=== PATIENT | male | born 1955 | race Caucasian/White ===

== ENCOUNTER 2023-01-14 09:04 | Outpatient (AMB) | payer BC, SELFPAY ==
--- NOTE | 2023-01-14 09:12 | AM.OFFWIN_ITS ---
Intake Vital Signs 01/14/23 09:13 Height 6 ft 1 in Weight 107.048 kg BMI 31.1 BP 128/70 Blood Pressure Location Lt brachial Position Sitting Pulse 80 Pulse Source Pulse Oximeter Temp 98.1 F Temp Source Oral Pulse Oximetry (%) 96 Oxygen Delivery Method Room Air Intake Visit Reasons: EP, cough (masked) Intake Note: Pt is here today c/o doesn't have a productive cough since yesterday Allergies lisinopril [LISINOPRIL] Adverse Reaction (Mild, Unverified 01/14/23 09:17) DRY COUGH atorvastatin [From LIPITOR] Adverse Reaction (Unknown, Unverified 01/14/23 09:17) MUSCLE WEAKNESS Do you need a note to return to daycare/school/sports/work: Yes HPI HPI Comments History of Present Illness Details 09 This is 66 year old male history of hyperlipidemia hypertension presenting to the clinic for evaluation of fatigue, malaise, myalgias, cough, sore throat, rib pain from coughing for the past 2 days worsening. Patient reports the main reason he came in today was because he feels like the muscles in his ribs are hurting long when he coughs, he reports a sore sensation only with cough. No p ain with deep breathing. Patient denies sick contacts. Patient denies fevers, chills, chest pain, shortness of breath, nausea, vomiting, abdominal pain, headache, vision changes, dizziness and weakness. Patient is already COVID test at home, test was negative. Physical exam significant for Breath sounds w/ mild- moderate expiratory wheezing throughout worse to left side .? Concerns for viral illness and possible asthma. Unlikely pulmonary embolism, pneumonia, ACS. Unlikely peritonsillar abscess, retropharyngeal abscess, epiglottitis. Plan at this time will give Lidoderm patches for muscular pain, prednisone for wheezing, albuterol inhaler for wheezing and benzos date Perles for cough. Educated patient on diagnosis and treatment plan, answered all question, patient verbalizes understanding. At this time patient will be discharged home, advised to return with new or worsening symptoms. Educated on worrisome signs and symptoms and when to return. At this time I feel comfortable discharge home. Review of Systems Const Details: Constitutional : No Weight loss, No Fever, No Chills, + Fatigue, + Malaise ENT/Mouth : + sore throat, No Rhinorrhea Eyes: No Eye Pain, No Swelling, No Redness Cardiovascular : No Chest Pain, No SOB, No Dyspnea on Exertion, No Orthopnea, No Edema, No Palpitations Respiratory : + Cough, No Sputum, No Wheezing Gastrointestinal : No Nausea, No Vomiting, No Diarrhea, No Constipation, No abdominal Pain, No Hematochezia, No Melena Genitourinary : No Dysuria, No Urinary Frequency, No Hematuria, Musculoskeletal : No joint pain, No Myalgias, No Joint Swelling, + rib pain Skin : No Skin Lesions, No rash Neuro : No Weakness, No Numbness, No Dizziness, No Headache Psych : No Anxiety/Panic, No Depression All other systems reviewed and are negative All systems reviewed & are unremarkable except as noted in HPI and below Physical Exam Vital Signs: Last Vital Signs Temp 98.1 F 01/14/23 09:13 Pulse 80 01/14/23 09:13 BP 128/70 01/14/23 09:13 Pulse Ox 96 01/14/23 09:13 Oxygen Delivery Method Room Air 01/14/23 09:13 BMI result Body Mass Index 31.1 vss Appearance: Alert.? Oriented X3.? No acute distress.? Head: Normocephalic, atraumatic, no step-offs or deformities Eyes: Pupils equal, round and reactive to light.? ENT: Pharynx normal.? Neck: Normal inspection.? Neck supple.? CVS: Normal heart rate and rhythm.? Pulses normal.? Respiratory: No respiratory distress.? Breath sounds w/ mild- moderate expiratory wheezing throughout worse to left side .? Abdomen: Soft and nontender.? Skin: Skin warm and dry.? Normal skin color.? Normal skin turgor.? Extremities: No lower extremity edema.? No calf ttp. 5/5 strength to bilateral upper and lower extremities Neuro: Oriented X 3.? No motor deficit.? No sensory deficit. CN 2-12 intact Assessment & Plan Assessment & Plan (1) Viral illness: Code(s): B34.9 - Viral infection, unspecified Plan Take your medications as prescribed. If you were prescribed antibiotics today, it is important that you take your medication to their entirety, do not skip any doses, do not finish them early. Follow-up with your primary care provider this week. Return to the emergency department with new or worsening symptoms. Such as fevers, chills, chest pain, shortness of breath, nausea, vomiting, dizziness, headache, vision changes, lethargy In case of emergency call 911 Orders: Orders BinaxZACKARYW Covid-19 Ag Today B34.9 - Viral infection, unspecified Medications: New albuterol sulfate 90 mcg/actuation 2 puffs inhalation Q6H PRN 6.7 grams 0RF shortness of breath or wheezing lidocaine 4% (AsperFlex (lidocaine)) 1 patch topical DAILY PRN 15 ea 0RF pain prednisone 40 mg (2 x 20 mg) PO DAILY 10 tabs 0RF 5 days benzonatate 100 mg PO BID PRN 14 caps 0RF cough Coding Level of Care Code Est Pt Level 3 (53580) Diagnoses Viral illness B34.9
[2023-01-14 09:13] VITALS: BP 128/70; PULSE 80; TEMP 36.7; O2SAT 96; BMI 31.1
== END 2023-01-14 14:55 | disposition home or self-care (01) ==
PROVIDERS: Visit Provider Physician Assistant
DX: B34.9 Viral infection, unspecified (principal)
CPT/HCPCS: 99213

== ENCOUNTER 2024-05-13 13:55 | Outpatient (REF) | payer BC, SELFPAY ==
--- OUTSIDE RECORDS SUMMARY | 2024-05-13 14:25 | XMS_ITS | Clinical Summary ---
Author Organization [facility] Address [address] [place] [address] Care Team Providers Care Special Library Librarian Name Role Phone Perez Carrasquillo MD Primary Care Provider [phone] Allergies Active Allergy Reactions Criticality Noted Date [...] topic Zoster (Zostavax) Discontinued Insurance * Guarantor: [id number] ICE Account Type Relation to Patient Date of Phone Billing Address [employer] [address] [place] [id number] [employer] Care Teams Special Library Librarian Relationship Specialty Start Date End Date Perez Carrasquillo MD [address] [address] PCP - General Family Medicine 11/06/19
[2024-05-13 16:38] LABS: Influenza A PCR NEGATIVE (Negative); Influenza B PCR NEGATIVE (Negative); Resp Syncy Virus RNA Qual PCR NEGATIVE (Negative); SARS COV2 PCR INHOUSE NEGATIVE (Negative)
== END 2024-05-13 13:56 | disposition home or self-care (01) ==
LOC: HO.LAB 13:55
PROVIDERS: Visit Provider Nurse Practitioner Family
DX: J06.9 Acute upper respiratory infection, unspecified (principal); R05.1 Acute cough
CPT/HCPCS: 0241U

== ENCOUNTER 2024-05-13 13:55 | Outpatient (AMB) | payer BC, SELFPAY ==
--- OUTSIDE RECORDS SUMMARY | 2024-05-13 13:57 | XMS_ITS | Clinical Summary ---
Author Organization [facility] Address [address] [place] [address] Care Team Providers Care Auto Fleet Manager Name Role Phone Perez Carrasquillo MD Primary Care Provider [phone] Allergies Active Allergy Reactions Criticality Noted Date Comments Lipitor Other 11/06/2019 muscle weakness Lisinopril Cough 11/06/2019 Medications Ezetimibe (ZETIA) 10 MG tablet Take 10 mg by mouth 1 (one) time each day 10/21/2019 Active amLODIPine Besylate (NORVASC) 5 MG tablet TK 1 T PO QD 09/14/2019 Active hydrALAZINE HCl (APRESOLINE) 10 MG tablet TK 1 T PO BID 09/14/2019 Active Immunizations Name Administration Dates Next Due Tdap 11/06/2019 Social History Tobacco Use Types Packs/Day Years Used Date Smoking Tobacco: Never Assessed Sex and Gender Information Value Date Recorded Sex Assigned at Not on file Legal Sex Male 1:21 PM EDT Gender Identity Not on file Sexual Orientation Not on file Last Filed Vital Signs Vital Sign Reading Time Taken Comments Blood Pressure 138/87 11/06/2019 1:31 PM EDT Pulse 82 11/06/2019 1:31 PM EDT Temperature 36.1 ??C (97 ??F) 11/06/2019 1:31 PM EDT Respiratory Rate - - Oxygen Saturation 97% 11/06/2019 1:31 PM EDT Inhaled Oxygen Concentration - - Weight - - Height - - Body Mass Index - - Plan of Treatment Health Maintenance Due Date Last Done Comments Hepatitis C Screening 1955 Pneumococcal 50+ years (1 of 1 - PCV) 10/10/2007 Zoster (Shingrix) (1 of 2) 10/10/2007 COVID-19 Vaccine ( - 2023-2 5 season) 2023 Influenza (#1) 2023 DTaP/Tdap/Td (2 - Td or Tdap) 11/05/2029 11/06/2019 RSV (1 - 1-dose 75+ series) 2032 Abdominal Aorta Imaging Discontinued HPV Vaccine Aged Out No longer eligi ble based on patient's age to complete this topic Hep A Aged Out No longer eligi ble based on patient's age to complete this topic Hep B Aged Out No longer eligi ble based on patient's age to complete this topic Hib Aged Out No longer eligi ble based on patient's age to complete this topic Meningococcal ACWY Aged Out No longer eligible based on patient's age to complete this topic Zoster (Zostavax) Discontinued Insurance * Guarantor: [id number] ICE Account Type Relation to Patient Date of Phone Billing Address [employer] [address] [place] [id number] [employer] Care Teams Auto Fleet Manager Relationship Specialty Start Date End Date Perez Carrasquillo MD [address] [address] PCP - General Family Medicine 11/06/19
--- NOTE | 2024-05-13 13:59 | AM.OFFWIN_ITS ---
Intake Vital Signs 05/13/24 14:03 Height 6 ft 1 in Weight 240 lb BMI 31.7 BP 156/100 H Blood Pressure Location Lt brachial Position Sitting Pulse 77 Pulse Source Pulse Oximeter Temp 97.9 F Temp Source Oral Pulse Oximetry (%) 98 Oxygen Delivery Method Room Air Intake Visit Reasons: EP Cough, discomf in chest, headache, HBP (150/90) Intake Note: Patient here for cough, chest pain,headache,congestion that started about 3-4 days ago. Patient Tobacco Use Status: Never used Tobacco Allergies lisinopril [LISINOPRIL] Adverse Reaction (Mild, Unverified 05/13/24 14:04) DRY COUGH atorvastatin [From LIPITOR] Adverse Reaction (Unknown, Unverified 05/13/24 14:04) MUSCLE WEAKNESS Do you need a note to return to daycare/school/sports/work: Yes HPI HPI Comments History of Present Illness Details 68 y/o male patient who presents to the walk in clinic with c/o URI symptoms x 3-4 days now. Reports cough, chest tightness and pain from coughing, headaches and Elevated BP. FOR[facility]LY [facility], [facility] Medical History (Updated 05/13/24 @ 14:20 by Bouchra Rodgers NP) Cough Acute respiratory disease Social History Patient Tobacco Use Status: Never used Tobacco Review of Systems Const All systems reviewed & are unremarkable except as noted in HPI and below Physical Exam Vital Signs: Last Vital Signs Temp 97.9 F 05/13/24 14:03 Pulse 77 05/13/24 14:03 BP 156/100 H 05/13/24 14:03 Pulse Ox 98 05/13/24 14:03 Oxygen Delivery Method Room Air 05/13/24 14:03 BMI result Body Mass Index 31.7 Const General: cooperative and no acute distress Orientation/consciousness: patient oriented x3 HEENT Head: Yes normocephalic Ears: external ears normal and TM abnormal obstructed by cerumen bilateral General nose exam: Normal external nose present and Nasal discharge present Face and sinus: Yes sinuses nontender Mouth: moist mucous membranes Throat: Yes uvula midline Resp Effort & Inspection: normal respiratory effort, able to speak in complete sentences, no audible wheezes and Actively coughing Auscultation: clear to auscultation bilaterally, no crackles, no rales, no rhonchi and no wheezes Cardio Heart sounds: S1 normal heart sound present and S2 normal heart sound present Neuro General: patient oriented x3 Assessment & Plan Assessment & Plan (1) Acute respiratory disease: Code(s): J06.9 - Acute upper respiratory infection, unspecified Plan: Ordered SARs Rest and hydrate well with warm fluids. (2) Cough: Code(s): R05.9 - Cough, unspecified Qualifiers: Cough type: acute Qualified Code(s): R05.1 - Acute cough Plan: Ordered SARs Rest and hydrate well with warm fluids. Orders: Orders SARS-CoV2/FLU/RSV Today J06.9 - Acute upper respiratory infection, unspecified Medications: New benzonatate 200 mg (2 x 100 mg) PO BID 60 caps 0RF R05.1 - Acute cough Coding Level of Care Code Est Pt Level 4 (85937) Diagnoses Acute respiratory disease J06.9 Acute cough R05.1 Cough type: acute Time Spent (min) 20
[2024-05-13 14:03] VITALS: BP 156/100; PULSE 77; TEMP 36.6; O2SAT 98; BMI 31.7
== END 2024-05-13 14:20 | disposition home or self-care (01) ==
PROVIDERS: Visit Provider Nurse Practitioner Family
DX: J06.9 Acute upper respiratory infection, unspecified (principal); R05.1 Acute cough

== ENCOUNTER 2024-05-15 14:50 | Outpatient (AMB) | payer BC, SELFPAY ==
--- OUTSIDE RECORDS SUMMARY | 2024-05-15 14:52 | XMS_ITS | Clinical Summary ---
Author Organization [facility] Address [address] [place] [address] Care Team Providers Care Criminalist Name Role Phone Perez Carrasquillo MD Primary Care Provider [phone] Allergies Active Allergy Reactions Criticality Noted Date [...] topic Zoster (Zostavax) Discontinued Insurance * Guarantor: [id number] ICE Account Type Relation to Patient Date of Phone Billing Address [employer] [address] [place] [id number] [employer] Care Teams Criminalist Relationship Specialty Start Date End Date Perez Carrasquillo MD [address] [address] PCP - General Family Medicine 11/06/19
[2024-05-15 15:29] VITALS: BP 142/82; PULSE 86; RESP 18; TEMP 37.1; O2SAT 98; BMI 31.7
--- NOTE | 2024-05-15 15:29 | AM.OFFWIN_ITS ---
Intake Vital Signs 05/15/24 15:29 Height 6 ft 1 in Weight 240 lb BMI 31.7 BP 142/82 H Blood Pressure Location Rt brachial Position Sitting Respiration 18 Pulse 86 Pulse Source Pulse Oximeter Temp 98.7 F Temp Source Oral Pulse Oximetry (%) 98 Oxygen Delivery Method Room Air Intake Visit Reasons: EP-cough, lwr back pain Intake Note: Pt is here today for a walk in visit. Pt was seen on Monday was given Benzonatate but that is not helping for the cough. Pt states that now he has pain on the R side of the abdomen from coughing. Patient Tobacco Use Status: Never used Tobacco Allergies lisinopril [LISINOPRIL] Adverse Reaction (Mild, Unverified 05/15/24 15:36) DRY COUGH atorvastatin [From LIPITOR] Adverse Reaction (Unknown, Unverified 05/15/24 15:36) MUSCLE WEAKNESS HPI HPI Comments History of Present Illness Details History - The patient is a 68-year-old male pres enting with a persistent nonproductive cough. - Symptoms began 6 days ago, with a prev ious diagnosis of an upper respiratory infection. - Initial management included rest, hydr ation, Tessalon Perles, and advice on the use of Trisha D. - The patient notes that attempts to cou gh are nonproductive, leading to muscle strain and headaches but denies fever, shortness of breath, or wheezing. - Past medical history includes treatmen t for hypertension, with current medications being amlodipine and hydrochlorothiazide. - Ibuprofen is administered for headache and throat inflammation relief. Physical Exam General: Cooperative, healthy appearing, comfortable and no acute distress Orientation/consciousness: Patient oriented x3 Limitations: No limitations Head: Normal to inspection Ears: Hearing grossly normal bilaterally, external ears normal and TM's bilaterally with cerumen Nose: Normal external nose present, Normal nares present and No nasal discharge present Face and sinus: Normal facial exam and Yes sinuses nontender Mouth: Normal oral and palatal mucosa present and moist mucous membranes Throat: Yes tonsils normal, Yes uvula midline. Posterior oropharynx erythema Eyes: Appearance normal, both eyes and all related structures Neck: Normal visual inspection Respiratory: slight insp/exp wheezes and vesicular sounds. Normal respiratory effort, able to speak in complete sentences, Actively coughing, no respiratory distress, not tachypneic, no tripod positioning and no use of accessory muscles, Cardiovascular: Regular rate and rhythm. Normal S1 and S2 Skin: No rashes or lesions noted Neuro: Patient oriented x3 Extremities: Normal to inspection and Yes no clubbing, cyanosis or edema [facility] Medical History (Updated 05/13/24 @ 14:20 by Bouchra Rodgers NP) Cough Acute respiratory disease Social History Patient Tobacco Use Status: Never used Tobacco Review of Systems Const All systems reviewed & are unremarkable except as noted in HPI and below Physical Exam Vital Signs: Last Vital Signs Temp 98.7 F 05/15/24 15:29 Pulse 86 05/15/24 15:29 Resp 18 05/15/24 15:29 BP 142/82 H 05/15/24 15:29 Pulse Ox 98 05/15/24 15:29 Oxygen Delivery Method Room Air 05/15/24 15:29 BMI result Body Mass Index 31.7 Assessment & Plan Assessment & Plan (1) Cough: Code(s): R05.9 - Cough, unspecified Qualifiers: Cough type: acute Qualified Code(s): R05.1 - Acute cough Plan: VSS, pt well appearing, lung sounds with ins/exp wheezes and vesicular sounds. The patient presents with persistent nonproductive cough subsequent to an upper respiratory infection. Considering differential diagnoses, a chest x-ray is required to exclude the development of pneumonia due to persistent symptoms. To address suspected lung inflammation, a SoluMedrol Dosepak is provided, involving a structured dosage taper, and Trisha D should be maintained. Tessalon Perles is prescribed nightly to reduce nocturnal coughing. Increased fluid intake is advised to improve mucus clearance. The patient is to complete a chest x-ray p romptly; if findings suggest pneumonia, an antibiotic will be administered. Follow-up arrangements will be made to evaluate treatment efficacy and determine further steps. Patient was informed and verbally consented to the use of an ambient scribe for clinic note documentation during this visit Orders: Orders XR chest 2V Today R05.9 - Cough, unspecified Medications: New methylprednisolone PO PER PKG DIR for 6 days 21 ea 0RF Discontinued albuterol sulfate 90 mcg/actuation Discontinued Reason: Patient no longer taking 2 puffs inhalation Q6H PRN 6.7 grams 0RF shortness of breath or wheezing Coding Level of Care Code New Pt Level 4 (10098) Diagnoses Acute cough R05.1 Cough type: acute
== END 2024-05-15 15:59 | disposition home or self-care (01) ==
PROVIDERS: Visit Provider Physician Assistant
DX: R05.1 Acute cough (principal)

== ENCOUNTER 2024-05-15 15:58 | Outpatient (REF) | payer BC, SELFPAY ==
--- NOTE | ~2024-05-15 | XR_ITS ---
EXAMINATION: XR CHEST CLINICAL INFORMATION: R05.9 - Cough, unspecified COMPARISON: 03/24/2018. TECHNIQUE: 2 views of the chest were obtained. FINDINGS: The cardiac, hilar, and mediastinal contours are normal. The lungs are clear bilaterally. There is no pneumothorax or pleural effusion. There is no focal osseous or soft tissue abnormality. XR/XR chest 2V IMPRESSION: No active pulmonary disease. Electronically signed by: Haim Bhakta MD 05/15/2024 04:22 PM [facility]
--- OUTSIDE RECORDS SUMMARY | 2024-05-15 16:00 | XMS_ITS | Clinical Summary ---
Author Organization [facility] Address [address] [place] [address] Care Team Providers Care Bed Rubber Name Role Phone Perez Carrasquillo MD Primary Care Provider [phone] Allergies Active Allergy Reactions Criticality Noted Date [...] topic Zoster (Zostavax) Discontinued Insurance * Guarantor: [id number] ICE Account Type Relation to Patient Date of Phone Billing Address [employer] [address] [place] [id number] [employer] Care Teams Bed Rubber Relationship Specialty Start Date End Date Perez Carrasquillo MD [address] [address] PCP - General Family Medicine 11/06/19
== END 2024-05-15 15:59 | disposition home or self-care (01) ==
LOC: HO.HMGCX 15:58
PROVIDERS: Visit Provider Physician Assistant
DX: R05.1 Acute cough (principal)
CPT/HCPCS: 71046

== ENCOUNTER → 2024-05-15 16:13 | Outpatient (BNV) | payer BC, SELFPAY | PROVIDERS: Visit Provider Radiology Diagnostic Radiology | DX: R05.9 Cough, unspecified (principal) | CPT/HCPCS: 71046 ==

== ENCOUNTER 2024-08-09 10:13 | Outpatient (REF) | payer OTHER, SELFPAY ==
--- OUTSIDE RECORDS SUMMARY | 2024-08-09 11:34 | XMS_ITS | Clinical Summary ---
Author Organization [facility] Address [address] [place] [address] Care Team Providers Care Welcome Desk Agent Name Role Phone Perez Carrasquillo MD Primary Care Provider [phone] Allergies Active Allergy Reactions Criticality Noted Date [...] topic Zoster (Zostavax) Discontinued Insurance * Guarantor: [id number] ICE Account Type Relation to Patient Date of Phone Billing Address Worker's Comp [address] [place] [id number] WORK[employer] COMPENS[employer] Care Teams Welcome Desk Agent Relationship Specialty Start Date End Date Perez Carrasquillo MD [address] [address] PCP - General Family Medicine 11/06/19
[2024-08-09 13:13] LABS: MANUAL DIFF FLAG NO
[2024-08-09 13:21] LABS: Basophils Absolute Auto 0.1 X10*3/uL (0.0-0.2); Basophils Percent Auto 0.9 % (0-2); Eosinophils Percent Auto 0.7 % (0-4); Hematocrit 43.1 % (42.0-52.0); Hemoglobin 14.8 g/dl (14.0-18.0); Imm Gran Abs Auto 0.02 X10*3/uL (0.00-0.03); Imm Gran Pct Auto 0.4 % (0.0-0.4); Lymphocytes Absolute Auto 1.6 X10*3/uL (1.2-4.9); Lymphocytes Percent Auto 27.8 % (20-40); Mean Corpuscular HGB Conc 34.3 g/dl (31.0-36.0); Mean Corpuscular Hemoglobin 31.4 pg (27.0-33.0); Mean Corpuscular Volume 91.5 fL (80.0-98.0); Mean Platelet Volume 9.7 fL (9.4-12.4); Monocytes Absolute Auto 0.5 X10*3/uL (0.1-1.2); Monocytes Percent Auto 8.4 % (2-11); Neutrophils Absolute Auto 3.5 x10*3/uL (2.0-8.3); Neutrophils Percent Auto 61.8 % (45-73); Platelet Count 281 X10*3/uL (160-400); Red Blood Count 4.71 X10*6/uL (4.60-5.80); Red Cell Distribution Width 13.9 % (11.0-16.0); White Blood Count 5.6 X10*3/uL (4.8-10.8)
[2024-08-09 13:26] LABS: Estimated Average Glucose 111 mg/dL; Hemoglobin A1C 142.6265 umol/L; Hemoglobin A1c % 5.5 % (<6.0); Total Hemoglobin (HGBA1C) 3916.5126 umol/L
[2024-08-09 14:03] LABS: PSA,Total (Free>4and<10) 2.18 ng/mL (0.00-4.00)
[2024-08-09 14:08] LABS: Alanine Aminotransferase 26 U/L (0-40); Albumin Level 4.3 g/dL (3.5-5.0); Alkaline Phosphatase 54 U/L (39-117); Anion Gap 12 (12-20); Aspartate Amino Transferase 31 U/L (5-37); Bilirubin Direct 0.2 mg/dL (0.0-0.5); Bilirubin Total 0.7 mg/dL (0.0-1.0); Blood Urea Nitrogen 9 mg/dL (9-16); Calcium 9.2 mg/dL (8.4-10.2); Carbon Dioxide 26 mmol/L (22-29); Chloride 104 mmol/L (96-108); Cholesterol 210 mg/dL (<200); Estimated Glomerular Filt Rate > 60; Glucose Fasting 96 mg/dL (60-99); HDL Cholesterol 46 mg/dL (>40); LDL Cholesterol Calculated 152 mg/dL (<100); Potassium 3.1 mmol/L (3.3-5.1); Sodium 139 mmol/L (135-145); TSH reflex Free T4 1.67 uIU/mL (0.32-4.0); Triglycerides 64 mg/dL (<150); Vitamin D 25-OH Total 25.8 ng/mL (>30)
[2024-08-09 14:13] LABS: Erythrocyte Sedimentation Rate 3 MM/HR (0-15)
[2024-08-09 14:16] LABS: Folate 7.9 ng/mL (> or = 4.0); Vitamin B12 746 pg/mL (200-900)
== END 2024-08-09 10:14 | disposition home or self-care (01) ==
LOC: HO.HMGCLDS 10:13
PROVIDERS: PCP Internal Medicine; Visit Provider Physician Assistant Medical
DX: Z76.89 Persons encountering health services in other specified circumstances (principal); I10 Essential (primary) hypertension; E53.8 Deficiency of other specified B group vitamins; E78.5 Hyperlipidemia, unspecified; N40.0 Benign prostatic hyperplasia without lower urinary tract symptoms; E66.811 Obesity, class 1; Z68.30 Body mass index [BMI] 30.0-30.9, adult; R01.1 Cardiac murmur, unspecified; H33.319 Horseshoe tear of retina without detachment, unspecified eye; Z79.899 Other long term (current) drug therapy; Z00.00 Encounter for general adult medical examination without abnormal findings; Z12.5 Encounter for screening for malignant neoplasm of prostate
CPT/HCPCS: 36415; 80053; 80061; 80076; 82248; 82306; 82607; 82746; 83036; 83735; 84153; 84443; 85025; 85652; 96127

== ENCOUNTER 2024-08-09 10:13 | Outpatient (AMB) | payer BC, SELFPAY ==
[2024-08-09 10:15] VITALS: BP 130/71; PULSE 72; RESP 14; TEMP 36.5; O2SAT 96; BMI 30.7
--- NOTE | 2024-08-09 10:15 | A.OFFPC_ITS ---
Vital Signs 08/09/24 10:15 Height 6 ft 1 in Weight 233 lb BMI 30.7 BP 130/71 Respiration 14 Pulse 72 Pulse Source Pulse Oximeter Temp 97.7 F Temp Source Temporal Artery Scan Pulse Oximetry (%) 96 Oxygen Delivery Method Room Air Intake Visit Reasons: establish care Histology Tech Required: No Accompanied by: Self / Same As Patient Allergies lisinopril [LISINOPRIL] Adverse Reaction (Mild, Unverified 08/09/24 10:51) DRY COUGH atorvastatin [From LIPITOR] Adverse Reaction (Unknown, Unverified 08/09/24 10:51) MUSCLE WEAKNESS Medication List - Last Reconciled 08/09/24 by Angie Spring PA-C amlodipine 10 mg PO DAILY aspirin 81 mg PO DAILY cyanocobalamin (vitamin B-12) 1,000 mcg PO DAILY ezetimibe 10 mg PO QAM gabapentin 1,200 mg PO BEDTIME hydralazine 10 mg PO BID hydrochlorothiazide 25 mg PO DAILY tamsulosin 0.4 mg PO DAILY Tobacco use date assessed: 08/09/24 Fall risk assessment: No Falls in past year Last assessed Fall Risk: 08/09/24 Dental Screening Dental Screen Date: 08/09/24 Did you have a dental visit in the last 12 months?: Yes Did you have a dental problem in the last 6 months where you did not have access to dental care?: No Was dental information given to patient?: Patient has dentist HPI establish care HPI Details The patient is a 68-year-old male presenting to establish a new primary care provider. The patient's chronic medical history includes managed hypertension and hyperlipidemia, with a consistent medication regimen comprising amlodipine and aspirin, among others, without notable side effects like leg sw elling. Furthermore, the patient recalls a colonoscopy within the last five years, involving removal of polyps, though specific pathology or follow-up details are not recollected. Despite recent scheduling for blood work and wellness visits, records have not been updated since a 2018 examination in our system. The patient's eye health necessitated laser intervention for a retinal tear discovered during a virtual eye assessment, followed up by a specialist confirmation. Ongoing surveillance of this condition has reported stability with no further issues. The patient denies current ocular discomfort or significant visual symptoms. On exam today patient is noted to have a possible heart murmur requiring confirmation. He was informed by a nurse about this finding approximately one year ago, though it was subsequently unverified by another healthcare provider. The patient does not report any symptoms such as chest pain or shortness of breath. Social History - Lives with his . - No falls reported in the past year. - Regular dental and vision examinations are maintained. - Underwent virtual vision assessment du e to change in provider availability. - Past employment of at [employer] off ice, indicating familial engagement with healthcare. [facility], [facility] Medical History (Updated 08/09/24 @ 11:07 by Angie Spring PA-C) Heart murmur Class 1 obesity with serious comorbidity and body mass index (BMI) of 30.0 to 30.9 in adult BPH (benign prostatic hyperplasia) Dyslipidemia B12 deficiency Essential hypertension Establishing care with new doctor, encounter for Cough Acute respiratory disease Family History Father No problems noted. Mother No problems noted. Social History Housing: House Alcohol intake: current Alcohol intake frequency: does not drink Patient Tobacco Use Status: Never used Tobacco service: No Current occupational status: employed Cognitive needs: No Hearing needs: No Vision needs: Yes (rx contacts) Questionnaire PHQ-9 Over the last 2 weeks, how often have you been bothered by any of the following problems? 1. Little interest or pleasure in doing things: not at all 2. Feeling down, depressed, or hopeless: not at all 3. Trouble falling or staying asleep, or sleeping too much: not at all 4. Feeling tired or having little energy: not at all 5. Poor appetite or overeating: not at all 6. Feeling bad about yourself - or that you are a failure or have let yourself or your family down: not at all 7. Trouble concentrating on things, such as reading the newspaper or watching television: not at all 8. Moving or speaking so slowly that other people could have noticed. Or the opposite - being so fidgety or restless that you have been moving around a lot more than usual: not at all 9. Thoughts that you would be better off or of hurting yourself in some way: not at all Total score: 0 Depression Screening Interpretation: Negative Depression Screening Done: Yes 37942 - PHQ-9 Billing: Yes Source: Developed by Drs. Oscar Beckwith, Jhoan Hernandez and colleagues, with an educational jody from [employer]. Thrive Questionnaire Date Thrive assessed: 08/09/24 I am a: Patient What is your living situation today?: I have a steady place to live Within the past 12 months, did the food you bought not last and you didn't have the money to get more?: Never true Within the past 12 months, did you worry whether your food would run out before you got money to buy more?: Never true Do you have trouble paying for medicines?: No Do you have trouble getting transportation to medical appointments?: No Do you have trouble paying your heating and electricity bill?: No Do you have trouble taking care of your child, family member or friend?: No Do you have trouble with day-to-day activities such as bathing, preparing meals, shopping, managing finances, etc.?: No Are you currently unemployed and looking for a job?: No Are you interested in more education?: No Please select the resources that you would like help with: None THRIVE Score: 0 AUDIT C Alcohol Use Questionnaire (AUDIT-C) 1. How often do you have a drink containing alcohol?: Never 3. How often do you have six or more drinks on one occasion?: Never Total Score: 0 Score Reviewed/Action Taken: No JOSE-7 AMB Questionnaire JOSE-7 Date JOSE - 7 assessed: 08/09/24 Feeling nervous, anxious, or on edge: 0 = Not at all Not being able to stop or control worryin = Not at all Worrying too much about different things: 0 = Not at all Trouble relaxin = Not at all Being so restless that it is hard to sit still: 0 = Not at all Becoming easily annoyed or irritable: 0 = Not at all Feeling afraid as if something awful might happen: 0 = Not at all Total JOSE-7 score (0-4 normal; 5-9 mild; 10-14 moderate; 15-21 severe): 0 Source: Developed by Drs. Oscar Beckwith, Jhoan Hernandez and colleagues, with an educational jody from [employer]. JOSE-7 Assessment Billing JOSE-7 Assessment Tool: JOSE-7 Assessment 35411 Review of Systems Const Details: - Cardiovascular: Denies chest pain, shortness of breath, or activity intolerance. - EENT: Reports past retinal tear resolved by laser treatment; sinus issues with ear fluid noted. - Musculoskeletal: Denies leg swelling. - General: Denies recent falls. - Neurological: Denies hearing difficulties linked to fluid presence. Physical exam (Primary Care) Vital Signs: Last Vital Signs Temp 97.7 F 08/09/24 10:15 Pulse 72 08/09/24 10:15 Resp 14 08/09/24 10:15 BP 130/71 08/09/24 10:15 Pulse Ox 96 08/09/24 10:15 Oxygen Delivery Method Room Air 08/09/24 10:15 Care Plan Goal for BP management: <130/90 at Goal BMI result Body Mass Index 30.7 BMI Assessment/Plan discussion: High BMI High, discussed plan: lifestyle, weight reduction, dietary, physical activity and alcohol moderation Tobacco/Smoking Status: Tobacco use Status Tobacco use date assessed 08/09/24 08/09/24 10:29 Patient Tobacco Use Status Never used Tobacco 08/09/24 10:29 PHQ-9: PHQ-9 Score PHQ-9: Total score 0 08/09/24 10:29 Depression Screening Interpretation: Negative Thrive Assessment: Date of Thrive Assessment Date Thrive assessed 08/09/24 08/09/24 10:29 Const Other: Appearance: Alert. Oriented X3. No acute distress. Head: Normal external exam. Normocephalic. Atraumatic. Eyes: Pupils are equal, round, and reactive to light. Extraocular movements intact. Conjunctiva and sclera normal. Eyelids normal. Ears: External auditory canal normal. Tympanic membranes normal. Throat: Pharynx normal. Uvula midline. Moist mucous membranes. Neck: Normal inspection. Neck supple. Full range of motion. No adenopathy. Thyroid Normal. No meningeal signs. No neck mass noted. Cardiovascular: Heart rate and rhythm normal. Heart sound abnormal with a pos sible murmur noted. Pulses normal throughout. Respiratory: No respiratory distress. Painless inspiration. Breath sounds normal. No wheezes/rales/rhonchi noted. Chest nontender. No accessory muscle usa ge noted or decreased air movement noted. Abdomen: Soft and nontender. Bowel sounds normal in all 4 quadrants. No distention noted. No organomegaly noted. No visible injury noted. Back: No costovertebral angle tenderness. Full range of motion noted. Skin: Skin warm and dry. Normal skin color. Normal skin turgor. No rashes/lesions/lacerations noted. Extremities: No lower extremity edema. Extremities exhibit normal range of motion. Extremities nontender. Neuro: Oriented X 3. No motor deficit. No sensory deficit. Reflexes normal. Coding Level of Care Code Est Pt Level 4 (84117) Complex EM visit Add On G2211 Diagnoses Establishing care with new doctor, encounter for Z76.89 Essential hypertension I10 B12 deficiency E53.8 Dyslipidemia E78.5 BPH (benign prostatic hyperplasia) N40.0 Class 1 obesity with serious comorbidity and body mass index (BMI) of 30.0 to 30.9 in adult E66.811; Z68.30 Heart murmur R01.1 Additional Codes PHQ-9 - 28719 - PHQ-9 Billing: Yes ([id number]) JOSE-7 Assessment Billing - JOSE-7 Assessment Tool: JOSE-7 Assessment 46360 ([id number]) Assessment & Plan Assessment & Plan (1) Establishing care with new doctor, encounter for: Code(s): Z76.89 - Persons encountering health services in other specified circumstances Category: Medical (2) Essential hypertension: Code(s): I10 - Essential (primary) hypertension Category: Medical Plan: Maintain current medication schedule, complementing with comprehensive metabolic profiling and periodic blood measurements to assess blood pressure management strategy continually. Condition is chronic and stable continue to monitor. (3) B12 deficiency: Code(s): E53.8 - Deficiency of other specified B group vitamins Category: Medical Plan: Patient with history of vitamin B12 deficiency. Currently on supplements. Will reassess with fasting labs. Condition is chronic and stable will continue to monitor. (4) Dyslipidemia: Code(s): E78.5 - Hyperlipidemia, unspecified Category: Medical Plan: Monitor by routine lipid panels and dietary evaluations in combination with prescribed lipid-lowering agents, ensuring effective cholesterol control. Condition is chronic and stable will continue to monitor. (5) BPH (benign prostatic hyperplasia): Code(s): N40.0 - Benign prostatic hyperplasia without lower urinary tract symptoms Category: Medical Plan: Patient currently on tamsulosin. Condition is chronic and stable will continue to monitor. (6) Class 1 obesity with serious comorbidity and body mass index (BMI) of 30.0 to 30.9 in adult: Code(s): E66.811 - Obesity, class 1; Z68.30 - Body mass index [BMI] 30.0-30.9, adult Category: Medical Plan: Patient to improve diet and exercise regimen. Condition is chronic and stable will continue to monitor. (7) Heart murmur: Code(s): R01.1 - Cardiac murmur, unspecified Category: Medical Plan: Conduct cardiac ultrasound to evaluate suspected regurgitation observed upon auscultation for the comprehensive management of potential heart murmur anomalies. Plan Plan Patient was informed and verbally consented to the use of an ambient scribe for clinic note documentation during this visit. 1. Heart Murmur Conduct cardiac ultrasound to evaluate suspected regurgitation observed upon auscultation for the comprehensive management of potential heart murmur anomalies. 2. Hypertension Maintain current medication schedule, complementing with comprehensive metabolic profiling and periodic blood measurements to assess blood pressure management strategy continually. 3. Hyperlipidemia Monitor by routine lipid panels and dietary evaluations in combination with prescribed lipid-lowering agents, ensuring effective cholesterol control. 4. Retinal Tear Implement follow-up ophthalmologic evaluations to confirm post-laser procedure success and monitor for recurrent retinal issues. 5. Colonoscopy Follow-Up Locate previous colonoscopy records to ascertain timelines for potential surveillance re-evaluation or intervention necessity. I discussed with the patient the probable presence of a heart murmur, as detected during examination, explaining the need for a cardiac ultrasound to ascertain its signification and possible impact on heart function. We reviewed the importance of this diagnostic test to confirm and understand the nature of the auscultated sound and the potential need for subsequent monitoring or treatment. I advised following up with blood work to evaluate the status of his hypertension and hyperlipidemia management, alongside completing necessary CMP and lipid panels. We agreed upon the requisition of past colonoscopy records from [facility] to discern relevant follow-up care concerning previously identified polyps. The patient expressed understanding and compliance with scheduled forthcoming interventions, notably the importance of regarding a heart murmur and chronic condition follow-up. Orders: Orders Liver Panel Today Z00.00 - Encounter for general adult medical examination without abnormal findings Vitamin B12 and Folate Today Z00.00 - Encounter for general adult medical examination without abnormal findings TSH reflex Free T4 Today Z00.00 - Encounter for general adult medical examination without abnormal findings Vitamin D 25-OH Total Today Z00.00 - Encounter for general adult medical examination without abnormal findings CA echo transthoracic complete Today R01.1 - Cardiac murmur, unspecified Complete Blood Count Auto Diff Today Z00.00 - Encounter for general adult medical examination without abnormal findings Comprehensive [place]. Panel Fast Today Z00.00 - Encounter for general adult medical examination without abnormal findings Erythrocyte Sedimentation Rate Today Z00.00 - Encounter for general adult medical examination without abnormal findings Magnesium Today Z00.00 - Encounter for general adult medical examination without abnormal findings Lipid Panel Today Z00.00 - Encounter for general adult medical examination without abnormal findings Hemoglobin A1c Today Z00.00 - Encounter for general adult medical examination without abnormal findings PSA,Total (Free>4and<10) Today Z00.00 - Encounter for general adult medical examination without abnormal findings Patient Instructions: - Schedule a cardiac ultrasound to assess the heart murmur noted. - Undergo recommended blood work for cholesterol and heart health. - Contact [facility] for prior colonoscopy records. - Continue prescribed medication regimen for hypertension and cholesterol. - Attend periodic ophthalmic evaluations for past retinal tear assessment. - Report any new symptoms such as chest pain or shortness of breath promptly.
--- OUTSIDE RECORDS SUMMARY | 2024-08-09 10:33 | XMS_ITS | Clinical Summary ---
Author Organization [facility] Address [address] [place] [address] Care Team Providers Care Rail Car Loader Name Role Phone Perez Carrasquillo MD Primary Care Provider [phone] Allergies Active Allergy Reactions Criticality Noted Date [...] topic Zoster (Zostavax) Discontinued Insurance * Guarantor: [id number] ICE Account Type Relation to Patient Date of Phone Billing Address Worker's Comp [address] [place] [id number] WORKERS COMPENS[employer] Care Teams Rail Car Loader Relationship Specialty Start Date End Date Perez Carrasquillo MD [address] [address] PCP - General Family Medicine 11/06/19
== END 2024-08-09 10:56 | disposition home or self-care (01) ==
LOC: HO.HMCSH 10:13
PROVIDERS: PCP Internal Medicine; Visit Provider Physician Assistant Medical
DX: Z76.89 Persons encountering health services in other specified circumstances (principal); I10 Essential (primary) hypertension; E53.8 Deficiency of other specified B group vitamins; E78.5 Hyperlipidemia, unspecified; N40.0 Benign prostatic hyperplasia without lower urinary tract symptoms; E66.811 Obesity, class 1; Z68.30 Body mass index [BMI] 30.0-30.9, adult; R01.1 Cardiac murmur, unspecified

== ENCOUNTER 2024-08-14 08:54 | Outpatient (REF) | payer OTHER, SELFPAY ==
--- OUTSIDE RECORDS SUMMARY | 2024-08-14 10:10 | XMS_ITS | Clinical Summary ---
Author Organization [facility] Address [address] [place] [address] Care Team Providers Care Supplemental Nurse Name Role Phone Perez Carrasquillo MD Primary Care Provider [phone] Allergies Active Allergy Reactions Criticality Noted Date [...] topic Zoster (Zostavax) Discontinued Insurance * Guarantor: [id number] ICE Account Type Relation to Patient Date of Phone Billing Address Worker's Comp [address] [place] [id number] WORKERS COMPENS[employer] Care Teams Supplemental Nurse Relationship Specialty Start Date End Date Perez Carrasquillo MD [address] [address] PCP - General Family Medicine 11/06/19
[2024-08-14 11:38] LABS: Anion Gap 12 (12-20); Blood Urea Nitrogen 10 mg/dL (9-16); Calcium 9.2 mg/dL (8.4-10.2); Carbon Dioxide 27 mmol/L (22-29); Chloride 103 mmol/L (96-108); Estimated Glomerular Filt Rate > 60; Glucose Random 92 mg/dL (60-115); Potassium 3.2 mmol/L (3.3-5.1); Sodium 139 mmol/L (135-145)
== END 2024-08-14 08:55 | disposition home or self-care (01) ==
LOC: HO.HMGCLDS 08:54
PROVIDERS: Visit Provider Physician Assistant Medical
DX: E87.6 Hypokalemia (principal)
CPT/HCPCS: 36415; 80048

== ENCOUNTER → 2024-09-12 08:25 | Outpatient (REF) | payer OTHER, SELFPAY ==
--- NOTE | 2024-09-12 08:29 | CA_ITS ---
Transthoracic Echocardiogram Patient (Last, First, Middle): Jostin Chino G Gender: Male Date of : 1955 Age: 68 Procedure Date: 09/12/2024 Procedure Type: Transthoracic Echocardiogram Location: OP Height: 185.42 cm Weight: 105.69 kg BSA: 2.30 m2 Heart Rate: 57 bpm BP: 130 / 71 mmHg Dot Compliance Manager: SB Referring MD: Angie Spring PA-C Symptoms: R01.1 - Cardiac murmur, unspecified Study Quality: Adequate ECG Rhythm: Bradycardia Conclusions: - Normal left ventricular size and systolic function. The visually estimated ejection fraction is between 55-60%. - E/E prime ratio is between 8 and 15 consistent with indeterminate filling pressures. - The basal inferoseptal segment is akinetic. - Normal right ventricular cavity size and systolic function. - There is mild dilatation of the ascending aorta measuring 3.60 cm. Findings Left Ventricle Normal left ventricular size and systolic function. The visually estimated ejection fraction is between 55-60%. There is evidence of regional wall motion abnormalities. Abnormal diastolic function is noted. Spectral Doppler is indicative of an impaired relaxation filling pattern. E/E prime ratio is between 8 and 15 consistent with indeterminate filling pressures. Wall Motion Rest Echo Findings The basal inferoseptal segment is akinetic. Right Ventricle Normal right ventricular cavity size and systolic function. Atria Both atria are normal in size. Aortic Valve There is a normal trileaflet aortic valve. There is mild calcification of the aortic valve. There is no aortic valve stenosis. There is no aortic valve regurgitation. Mitral Valve The mitral valve appears normal. There is no mitral valve regurgitation. There is no mitral valve stenosis. Pulmonic Valve The pulmonic valve is likely normal. Tricuspid Valve Normal tricuspid valve structure. There is no tricuspid valve regurgitation. Normal right atrial pressure. There is no evidence of pulmonary hypertension. Great Vessels There is mild dilatation of the ascending aorta measuring 3.60 cm. The visualized portions of the pulmonary artery and branches are normal. Venous The inferior vena cava is normal in size and collapses greater than 50% with inspiration. Pericardium/Pleural There is no evidence of pericardial effusion. Prior Study Comparison Changes noted compared to prior study dated: 03/26/2018. Basal inferoseptal wall is akinetic. Measurements 2D Linear Measurements IVSd: 1.12 0.6-0.9/0.6-1.0 cm LVIDd: 4.98 3.9-5.3/4.2-5.9 cm LVIDd Index: 2.17 2.4-3.2/2.2-3.1 cm/m2 LVIDs: 3.74 2.0-3.6 cm LVPWd: 0.82 0.7-1.1 cm LA Diam: 3.40 2.7-3.8/3.0-4.0 cm LAIDs Index: 1.48 1.5-2.3 cm/m2 LV Mass: 215.73 67-162/88-224 g LV Mass Index: 93.80 43-95/49-115 g/m2 LVOT Diam: 2.50 3.0+(-)1.3 cm 2D Systolic Function EF 4C: 54.80 >55% EF 2C: 61.90 >55% EF BiP: 56.60 >55% Mitral Valve MV Pk E: 0.70 MV PK A: 0.77 MV Decel Time: 291.00 E/A: 0.90 E'Lateral: 6.74 E'Medial: 6.09 E/E' Med: 11.50 E/E' Lat: 10.40 PHT: 85.00 MVA PHT: 2.59 Decel [place]: 2.40 Aortic Valve AoV Pk Gómez: 1.19 AoV Pk Grad: 6.00 BONNIE: 4.28 LVOT LVOT Pk Gómez: 0.97 LVOT Mn Gómez: 0.71 LVOT VTI: 0.23 LVOT Pk Grad: 4.00 LVOT Mn Grad: 2.00 LVOT Diam: 2.50 LVOT Area: 4.91 Diastolic Function MV Pk E: 0.70 MV Pk A: 0.77 E/A: 0.90 E'Medial: 6.09 E/E' Med: 11.50 E' Laterial: 6.74 E/E' Lat: 10.40 Right Ventricle TAPSE (mm): 16.80 TVS' Gómez: 9.57 Tricuspid Valve TR Pk Gómez: 2.10 TR Pk Grad: 18.00 RA Press: 3.00 RVSP: 21.00 Great Vessels Aorta Sinus of Valsalva: 3.60 2.0-3.5 cm Ao Asc: 3.60 2.1-3.4 cm Pulmonary Valve PV Pk Gómez: 0.91 Peak PV Grad: 3.00 Updated in Other Vendor System with Status of Final Crescencio Ramos MD electronically signed on 09/15/2024 10:07:39 PM with status of Final
--- OUTSIDE RECORDS SUMMARY | 2024-09-12 08:35 | XMS_ITS | Clinical Summary ---
Author Organization [facility] Address [address] [place] [address] Care Team Providers Care Computer Applications Engineer Name Role Phone Perez Carrasquillo MD Primary Care Provider [phone] Allergies Active Allergy Reactions Criticality Noted Date Comments Lipitor Other 11/06/2019 muscle weakness Lisinopril Cough 11/06/2019 Medications Ezetimibe (ZETIA) 10 MG tablet Take 10 mg by mouth 1 (one) time each day 10/21/2019 Active amLODIPine Besylate (NORVASC) 5 MG tablet TK 1 T PO QD 09/14/2019 Active hydrALAZINE HCl (APRESOLINE) 10 MG tablet TK 1 T PO BID 09/14/2019 Active Immunizations Immunization Administration Dates Next Due Tdap 11/06/2019 Social [...] 82 11/06/2019 1:31 PM EDT Temperature 36.1 C (97 F) 11/06/2019 1:31 PM EDT Respiratory Rate - - Oxygen Saturation 97% 11/06/2019 1:31 PM EDT Inhaled Oxygen Concentration - - Weight - - Height - - Body Mass Index - - Plan of Treatment Health Maintenance Due Date Last Done Comments Hepatitis C Screening 1955 Pneumococcal 50+ years (1 of 1 - PCV) 10/10/2007 Zoster (Shingrix) (1 of 2) 10/10/2007 COVID-19 Vaccine (2023-2 5 season) 2023 Influenza (Season Ended) 2024 DTaP/Tdap/Td (2 - Td or Tdap) 11/05/2029 [...] topic Zoster (Zostavax) Discontinued Insurance * Guarantor: [id number] ICE Account Type Relation to Patient Date of Phone Billing Address Worker's Comp [address] [place] [id number] WORK[employer] Care Teams Computer Applications Engineer Relationship Specialty Start Date End Date Perez Carrasquillo MD [address] [address] PCP - General Family Medicine 11/06/19
== END ==
LOC: HO.CARD 08:25
PROVIDERS: PCP Physician Assistant Medical; Visit Provider Physician Assistant Medical
DX: R01.1 Cardiac murmur, unspecified (principal)
CPT/HCPCS: 93306

== ENCOUNTER → 2024-09-12 08:29 | Outpatient (BNV) | payer OTHER, SELFPAY | PROVIDERS: PCP Physician Assistant Medical; Visit Provider Internal Medicine Cardiovascular Disease | DX: R01.1 Cardiac murmur, unspecified (principal); I51.89 Other ill-defined heart diseases | CPT/HCPCS: 93306 ==

== ENCOUNTER 2024-10-23 11:52 | Outpatient (AMB) | payer OTHER, SELFPAY ==
[2024-10-23 12:02] VITALS: BP 128/76; PULSE 73; BMI 30.5
--- NOTE | 2024-10-23 12:02 | MHC.OFFVIS ---
Vital Signs 10/23/24 12:02 Height 6 ft 1 in Weight 231 lb 7.766 oz BMI 30.5 BP 128/76 Blood Pressure Location Lt brachial Position Sitting Pulse 73 Intake Visit Reasons: f/up-echo Intake Note: New patient with ekg post echo feeling good Laboratory Supervisor Required: No Allergies lisinopril (LISINOPRIL) Adverse Reaction (Mild, Unverified 08/09/24 10:51) DRY COUGH atorvastatin (From LIPITOR) Adverse Reaction (Unknown, Unverified 08/09/24 10:51) MUSCLE WEAKNESS Medication List - Last Reconciled 10/23/24 by Crescencio Ramos MD amlodipine 5 mg PO DAILY aspirin 81 mg PO DAILY cholecalciferol (vitamin D3) 1,250 mcg PO QWEEK 3 months cyanocobalamin (vitamin B-12) 1,000 mcg PO DAILY ezetimibe 10 mg PO QAM gabapentin 1,200 mg (4 x 300 mg) PO BEDTIME 90 days hydralazine 10 mg PO BID hydrochlorothiazide 25 mg PO DAILY tamsulosin 0.4 mg PO DAILY HPI Comments Details: 69-year-old gentleman with background history of hypertension, hyperlipidemia and PFO who is here for 1st office visit. He had echocardiography performed recently because he has size primary care physician where a murmur was heard. Echocardiography showed normal biventricular function, basal inferior wall hypokinesis and mild dilation of ascending aorta at 3.6 cm. No valvular pathology noted. He is currently employed and his work involves heavy lifting. He is on multiple medications for hypertension and blood pressure is controlled currently. He was mildly hypokalemic on blood workup before while taking hydrochlorothiazide. He is denying any chest discomfort or shortness of breath with activities. No syncope or dizziness. No heart failure symptoms. He had echocardiography in 2018 when he got himself off all antihypertensive medication and had an hypertensive urgency episode. Echocardiography at that time showed PFO with [id number]-tp-[id number] shunting. He never had stroke before. He is taking baby aspirin. [facility] Medical History (Updated 09/17/24 @ 11:16 by Angie Spring PA-C) Diastolic dysfunction (~09/12/24) Mild ascending aorta dilatation (~09/12/24) Hypokalemia Heart murmur Class 1 obesity with serious comorbidity and body mass index (BMI) of 30.0 to 30.9 in adult BPH (benign prostatic hyperplasia) Dyslipidemia B12 deficiency Essential hypertension Establishing care with new doctor, encounter for Cough Acute respiratory disease Family History Father No problems noted. Mother No problems noted. Social History Housing: House Alcohol intake: current Alcohol intake frequency: does not drink Patient Tobacco Use Status: Never used Tobacco service: No Current occupational status: employed Cognitive needs: No Hearing needs: No Vision needs: Yes (rx contacts) Review of Systems Const Denies chills, Denies daytime sleepiness, Denies fatigue, Denies fever(s), Denies frequent falls, Denies poor appetite, Denies snoring, Denies stops breathing during sleep, Denies weakness, Denies weight gain and Denies weight loss Eyes Denies loss of vision ENT Denies dizziness and Denies hearing loss Card Denies chest pain, Denies claudication, Denies leg edema, Denies lightheadedness, Denies palpitations, Denies dyspnea, Denies dyspnea on exertion and Denies orthopnea Resp Denies cough, Denies excessive phlegm production, Denies dyspnea, Denies dyspnea on exertion, Denies snoring and Denies wheezing GI Denies abdominal pain, Denies hematochezia, Denies change in bowel habits, Denies nausea and Denies vomiting Denies dysuria and Denies urinary frequency Musc Denies arthralgias, Denies muscle weakness, Denies numbness and Denies other (frequent falls) Skin/Breast Denies nail changes and Denies rash Neuro Denies Abnormal speech present, Denies dizziness, Denies frequent falls, Denies loss of vision, Denies memory loss, Denies numbness and Denies weakness Psych Denies depression and Denies memory loss Endo Denies fatigue and Denies palpitations Eris/Lymph Reports easy bruising and Reports other (anemia) Aller/Immun Denies wheezing Physical Exam Vital Signs: Last Vital Signs Pulse 73 10/23/24 12:02 BP 128/76 10/23/24 12:02 BMI result Body Mass Index 30.5 GENERAL APPEARANCE: in no acute distress, pleasant. NECK: no carotid bruit, no jugular venous distention. SKIN: no suspicious lesions, warm and dry. HEART: no murmurs, regular rate and rhythm. LUNGS: clear to auscultation bilaterally. ABDOMEN: soft, nontender. EXTREMITIES: no edema. PERIPHERAL PULSES: equal. NEUROLOGIC: No gross deficits, AAO X 3 Neuro Speech: No Abnormal speech present Office Procedures EKG Details: Normal sinus rhythm 73 beats per minute, left ventricular hypertrophy, QTC 440 milliseconds. [id number], Complete Assessment & Plan Assessment & Plan (1) Essential hypertension: Code(s): I10 - Essential (primary) hypertension Category: Medical (2) Mild ascending aorta dilatation: Onset Date: ~09/12/24 Comment: 3.60 cm. Code(s): I77.810 - Thoracic aortic ectasia Category: Medical Plan [age] year gentleman who is here for follow-up. He has background history of hypertension, hyperlipidemia and PFO without history of stroke. His blood pressure is well controlled currently. Hypokalemia with hydrochlorothiazide sometimes can be seen with hyperaldosteronism. If his blood pressure is uncontrolled then spironolactone can be added in the future. He does not have any heart murmur by examination or echocardiography currently. No symptoms of coronary artery disease. He is taking baby aspirin already due to his history of PFO. If he developed any exertional symptoms in the future then we can do stress testing. Currently would continue same medications. He can see us p.r.n.. Thank you for allowing me to participate in the care of your patient. Please feel free to contact me if you have any questions. Coding Level of Care Code Procedure Only Diagnoses Essential hypertension I10 Mild ascending aorta dilatation I77.810 CPT Codes EKG - CPT: 39615-[id number], Complete ([id number])
--- OUTSIDE RECORDS SUMMARY | 2024-10-23 12:49 | XMS_ITS | Clinical Summary ---
Author Organization [facility] Address [address] [place] [address] Care Team Providers Care Powerhouse Mechanic Helper Name Role Phone Perez Carrasquillo MD Primary Care Provider [phone] Allergies Active Allergy Reactions Criticality Noted Date [...] COVID-19 Vaccine (2023-2 5 season) 2023 Influenza (#1) 2024 DTaP/Tdap/Td (2 - Td or Tdap) 11/05/2029 11/06/2019 RSV (1 - 1-dose 75+ series) 2032 Abdominal Aorta Imaging Discontinued HPV Vaccine (No Doses Required) Completed Hep A Aged Out No longer eligi [...] topic Zoster (Zostavax) Discontinued Insurance * Guarantor: [id number] ICE Account Type Relation to Patient Date of Phone Billing Address Worker[employer] [address] [place] [id number] [employer] Care Teams Powerhouse Mechanic Helper Relationship Specialty Start Date End Date Perez Carrasquillo MD [address] [address] PCP - General Family Medicine 11/06/19
--- OUTSIDE RECORDS SUMMARY | 2024-10-23 12:49 | XMS_ITS | Clinical Summary ---
Author Organization [facility] Address [address] [place] [id number] Phone Care Team Providers Care Supervisor Microwave Name Role Phone Damaris Moran Primary Care Provider Allergies Active Allergy Reactions Criticality Noted Date Comments Atorvastatin 08/22/2019 Myalgia Lisinopril Cough 08/22/2019 Medications hydrALAZINE (APRESOLINE) 10 MG tablet Take 10 mg by mouth daily. Active ezetimibe (ZETIA) 10 mg tablet Take 10 mg by mouth daily. Active tamsulosin (FLOMAX) 0.4 mg Cap Take 1 capsule by mouth every morning. 07/16/2022 Active cyanocobalamin, vitamin B-12, 100 MCG tablet Take 100 mcg by mouth daily. Active amLODIPine (NORVASC) 5 MG tablet Take 5 mg by mouth daily. 01/30/2023 Active aspirin 81 MG EC tablet Take 1 tablet (81 mg total) by mouth 2 (two) times a day. 06/20/2023 Active Hospital, Clinic, or Other Facility Administered Medication Ordered Dose Route Frequency Start Date End Date Status triamcinolone acetonide (KENALOG-40) 40 mg/mL injection 80 mgIndications:Pain of both shoulder joints 80 mg IM See admin instructions 05/02/2024 Active BUPivacaine (PF) (MARCAINE) 0.25% injection 2 mLIndications:Pain of both shoulder joints 2 mL See Adm Inst See admin instructions 05/02/2024 Active lidocaine (XYLOCAINE) 1% injection 2 mLIndications:Pain of both shoulder joints 2 mL Infil See admin instructions 05/02/2024 Active Active Problems Problem Noted Date Diagnosed Date Status post total left knee replacement 08/03/19 Preop examination 04/16/2023 Assessment & Plan (04/16/2023 5:24 PM EST): 67 year old patient of Damaris GALARZA with planned left total knee replacement on 06/20/23. Procedure risk is intermediate. Patient denies symptoms associated with acute coronary syndromes including unstable or severe angina, UT within 1 month, severe CHF, high grade arrhythmia or symptomatic valvular disease. Medical risk assessment at the surgical optimization clinic are as follows. YEUNG cardiovascular risk score is 0.2 % risk of myocardial infarction or cardiac arrest, intraoperatively or up to 30 day post-operatively. If <1%, no further cardiac work-up recommended. STOP BANG score shows 3 points indicating an intermediate risk of sleep apnea. DASI score was 39.45 points, able to achieve at least 7.59 METS. If DASI >18, no further cardiac testing recommended. RCRI score was 0.4 % risk for cardiovascular event including myocardial infarction, pulmonary edema, arrhythmia, cardiac arrest or complete heart block. This reflects very low risk on the scale. Patient's risk for major adverse cardiac events is low. This meets ACC/AHA guidelines for proceeding to non-cardiac surgery without additional testing. Patient is able to climb stairs, walks dogs 1/4 mile daily without any exertional or anginal symptoms. Blood work from 04/07/23 shows a hemoglobin A1c of 5.4%. CBC and BMP are unremarkable with a creatinine of 0.60 and eGFR 107. EKG shows normal sinus rhythm. HR 78, Qtc 451 ms. There is no evidence of acute or prior ischemia. The patient can proceed to the intended procedure without further work-up. Recommend non-urgent baseline echocardiogram for evaluation of cardiac murmur, defer to PCP (does not need to be done pre-op). He should have standard DVT and antibiotic prophylaxis. The patient was instructed to hold the aspirin x 1 week before surgery and discontinue use of any NSAIDs, fish oil, turmeric, herbal supplements and multivitamins for 10 days before surgery as these could increase the risk of bleeding complications. The patient does not have any medical conditions which would preclude a same day discharge after joint replacement surgery. HTN (hypertension) 04/16/2023 Assessment & Plan (04/16/2023 5:04 PM EST): Well-controlled BP 126/82. On medical management with amlodipine 5 mg PO daily and hydralazine 10 mg PO daily. Instructed to continue these medications perioperatively. Hyperlipidemia 04/16/2023 Assessment & Plan (04/16/2023 5:05 PM EST): Did not tolerate statin, on medical management with ezetimibe 10 mg PO daily. Instructed to hold this medication for 1 day before surgery. Benign prostatic hyperplasia with nocturia 04/16 Assessment & Plan (04/16/2023 5:08 PM EST): Denies any history of urinary retention. Nocturia x 2-3. On medical management with tamsulosin 0.4 mg PO daily which should be continued perioperatively. Localized edema 04/16/2023 Assessment & Plan (04/16/2023 5:19 PM EST): H/o mild peripheral edema with mild chronic venous stasis changes on exam. Primary osteoarthritis of left knee 08/25/2022 Assessment & Plan (04/16/2023 5:17 PM EST): Planned for left TKA on 06/20/23 by . Pain management with tramadol 50 mg PO PRN BID and tylenol occasionally. Both of which he may continue perioperatively. Resolved Problems Problem Noted Date Diagnosed Date Resolved Date Gastrocnemius strain, left 05/23/2021 0 04/16/2023 History of total knee arthroplasty, right 06/15/2020 04/16/2023 Encounter for preoperative s creening laboratory testing for COVID-19 virus 06/15/2020 Primary osteoarthritis of right knee 04/16/2023 Family History Medical History Relation Comments No Known Problems Brother No Known Problems Daughter Bleeding in the brain Mother No Known Problems Sister 1 No Known Problems Sister 2 No Known Problems Son 1 No Known Problems Son 2 No Known Problems Son 3 Relation Status Comments Brother Alive Daughter Alive Father (Age 91) Mother (Age 84) Sister 1 Alive Sister 2 Alive Son 1 Alive Son 2 Alive Son 3 Alive Social History Tobacco Use Types Packs/Day Years Used Date Smoking Tobacco: Never Smokeless Tobacco: Never Tobacco Cessation:Counseling Given: Not Answered Alcohol Use Standard Drinks/Week Comments Never 0 (1 standard drink = 0.6 oz pure alcohol) h/o alcoholism, sober since 2014 Education Answer Date Recorded Are you interested in more education? Not on katty e 07/21/2022 Are you concerned about learning? Not on file 07/21/2022 No 07/21/2022 No 07/21/2022 Digital Access Answer Date Recorded No 08/20/2022 No 08/20/2022 Reliable internet access at home? Not on file 08/20/2022 Device with a working camera? Not on file Sex and Gender Information Value Date Recorded Sex Assigned at Not on file Legal Sex Male 9:51 PM EDT Gender Identity Not on file Sexual Orientation Not on file Last Filed Vital Signs Vital Sign Reading Time Taken Comments Blood Pressure 141/83 06/20/2023 2:10 PM EDT Pulse 64 06/20/2023 11:45 AM EDT Temperature 36.6 C (97.9 F) 06/20/2023 9:50 AM EDT Respiratory Rate 16 06/20/2023 11:45 AM EDT Oxygen Saturation 99% 06/20/2023 11:45 AM EDT Inhaled Oxygen Concentration - - Weight 108.9 kg (240 lb) 06/20/2023 6:20 AM EDT Height 185.4 cm (6' 1 ) 06/20/2023 6:20 AM EDT Body Mass Index 31.66 06/20/2023 6:20 AM EDT Plan of Treatment Health Maintenance Due Date Last Done Comments LIPID PANEL 1957 DEPRESSION SCREENING 1969 HEPATITIS C SCREENING 10/10/1975 COLOGUARD 2002 COLONOSCOPY 2002 COLORECTAL CANCER SCREENING 2002 FIT TEST 2002 FOBT 2002 SIGMOIDOSCOPY 2002 VIRTUAL COLONOSCOPY 2002 PNEUMOCOCCAL VACCINES (50+ years) (1 of 1 - PCV) 10/10/2007 ZOSTER VACCINES (1 of 2) 10/10/2007 BLOOD PRESSURE 11/23/2023 05/25/2023 COVID-19 VACCINE (2023-2 5 season) 2023 02/04/2021, 08/03/2020, 07/13/2020 SCREENING FOR DIABETES 06/19/2026 , 04/07/2023 Adult Td,Tdap Booster 11/05/2029 11/06/2019 , 10/06/2016, 06/12/2013 RSV VACCINE (1 - 1-dose 75+ series) 2032 SMOKING STATUS SCREENING (On ce After 26 Yrs) Completed 08/03/2023 HEPATITIS A VACCINES Aged Out No long er eligible based on patient's age to complete this topic HIB VACCINES Aged Out No longer eligi ble based on patient's age to complete this topic MENINGOCOCCAL VACCINES (ACWY) Aged Out No longer eligible based on patient's age to complete this topic MENINGOCOCCAL VACCINES (B) Aged Out N o longer eligible based on patient's age to complete this topic Medical Devices Implanted Type Area Radar Systems Engineer Device Identifier Shelf Expiration Date Model / Serial / Lot Cement Bone Biomet Standard R 1x40 Us - [id number] Implanted:Qty: 2 on 06/15/2020 by Haja Olmos MD at [facility] Right: Knee JAMES / DIV [employer]ST[employer] 03/26/2024 [id number] / / [id number] Knee Implant 70.0mm Component Femoral Vanguard Interlok Frederick Cruciate Retaining Cemented Right - [id number] Implanted:Qty: 1 on 06/15/2020 by Haja Olmos MD at [facility] Right: Knee [employer] 09/05/2029 [id number] / / [id number] Knee Tray 79mm Plate Bone Primary Vanguard Frederick I Beam Revision Interlock Cemented - [id number] Implanted:Qty: 1 on 06/15/2020 by Haja Olmos MD at [facility] Right: Knee [employer] 03/09/2030 [id number] / / [id number] Button Patella 39g82rh Knee Vanguard Uhmwpe Single Peg Series A Standard - [id number] Implanted:Qty: 1 on 06/15/2020 by Haja Olmos MD at [facility] Right: Knee [employer] 09/16/2021 [id number] / / [id number] [facility] Knee Vivacit-E Highly Crosslinked Polyethylene Tibial Bearing Lipped Cruciate Retaining (Cr) 79/83 Mm Width 12 Mm Thickness Implanted:Qty: 1 on 06/15/2020 by Haja Olmos MD at [facility] Right: Knee JAMES [employer]ET 04/26/2024 [id number] / / [id number] Knee Patella 38x9.5mm Persona All Polyethylene Cemented Conventional - [id number] Implanted:Qty: 1 on 06/20/2023 by Rohit Pineda MD at [facility] Left: Knee JAMES BI[employer]ET 03/11/2028 [id number] / / [id number] Knee Implant 10mm 8 11 Component Articular Surface Persona Polyethylene Vivacite E Cruciate Retaining Fixed Lt Gh - [id number] Implanted:Qty: 1 on 06/20/2023 by Rohit Pineda MD at [facility] Left: Knee JAMES [employer] [id number] 11/02/2026 [id number] / / [id number] Bone Cement Antibiotic Refobacin - [id number] Implanted:Qty: 1 on 06/20/2023 by Rohit Pineda MD at [facility] Left: Knee JAMES [employer] [id number] 09/23/2025 [id number] / / [id number] Bone Cement Antibiotic Refobacin - [id number] Implanted:Qty: 1 on 06/20/2023 by Rohit Pineda MD at [facility] Left: Knee JAMES [employer] [id number] 09/23/2025 [id number] / / [id number] Knee Implant 5.0deg Component Tibial Persona Titanium Stemmed Cemented Lt Size H - [id number] Implanted:Qty: 1 on 06/20/2023 by Rohit Pineda MD at [facility] Left: Knee JAMES BI[employer]ET [id number] 02/15/2033 [id number] / / [id number] Knee Implant 5.0deg Component Tibial Persona Titanium Stemmed Cemented Lt Size H - [id number] Implanted:Qty: 1 on 06/20/2023 by Rohit Pineda MD at [facility] Left: Knee JAMES [employer]ET [id number] 02/15/2033 [id number] / / [id number] Insurance [facility] PPO EPO MEDICARE A Member Subscriber Plan / Payer (Ef fective 2022-Present) Name:Jostin Chino Member ID:[id number] Relation to Subscriber:Self Name:GabemedhatJostin Subscriber ID:[id number] Payer ID:[id number] Group ID:Not on file Type:Medicare Address: [facility].[address] [address] [facility] PPO EPO [facility] PPO EPO MEDICARE A [facility] PPO EPO MEDICARE A [facility] [place] [address] [place] [address] [place] [address] Advance Directives For more information, please contact: [phone] (9AM - 5PM [facility], Monday-Monday) * Full Code (Latest Code Status on File) Date Activated Date Inactivated Comments 06/15/2020 10:30 AM Question Answer Comments Code Status Confirmed With: Patient Code Status Communicated To: Inpatient Attending Care Teams Supervisor Microwave Relationship Specialty Start Date End Date Damaris Moran PA [address] [place] [id number] [email or web address] PCP - General Physician Solar Installation Foreman 08/25/22 Additional Source Comments The information contained in this document represents components of the legal health record. It is not the complete legal health record.[facility]
== END 2024-10-23 12:42 | disposition home or self-care (01) ==
LOC: HO.HCS 11:53
PROVIDERS: PCP Physician Assistant Medical; Visit Provider Internal Medicine Cardiovascular Disease
DX: I10 Essential (primary) hypertension (principal); I77.810 Thoracic aortic ectasia; I42.2 Other hypertrophic cardiomyopathy
CPT/HCPCS: 93010; 99213

== ENCOUNTER → 2024-10-23 11:52 | Outpatient (BNVA) | payer OTHER, SELFPAY | PROVIDERS: PCP Physician Assistant Medical; Visit Provider Internal Medicine Cardiovascular Disease | DX: I10 Essential (primary) hypertension (principal) | CPT/HCPCS: 93005 ==

== ENCOUNTER 2024-11-27 07:09 | Outpatient (AMB) | payer OTHER, SELFPAY ==
--- NOTE | 2024-11-27 07:10 | AM.OFFWIN_ITS ---
Intake Vital Signs 11/27/24 07:11 Height 6 ft 1 in Weight 236 lb BMI 31.1 BP 120/66 Blood Pressure Location Lt brachial Position Sitting Respiration 16 Pulse 73 Pulse Source Pulse Oximeter Temp 98.0 F Temp Source Oral Pulse Oximetry (%) 98 Oxygen Delivery Method Room Air Intake Visit Reasons: EP-flu symptoms Intake Note: Pt is here today c/o nasal congestion and coughing yesterday Patient Tobacco Use Status: Never used Tobacco Allergies lisinopril (LISINOPRIL) Adverse Reaction (Mild, Unverified 11/27/24 07:15) DRY COUGH atorvastatin (From LIPITOR) Adverse Reaction (Unknown, Unverified 11/27/24 0 7:15) MUSCLE WEAKNESS HPI HPI Comments History of Present Illness Details History - The patient is a 69-year-old male pres enting with symptoms suggestive of an influenza-like illness. - Symptoms include sore throat, fatigue, cough, rhinorrhea, and ear congestion, which began after his daughter's flu diagnosis. Also feels foggy brained and tired. - He experiences significant daily activ ity impairment, including difficulty driving. - Denies fever and shortness of breath; no history of asthma or COPD. Physical Exam General: Cooperative, healthy appearing, comfortable and no acute distress Orientation/consciousness: Patient oriented x3 Limitations: No limitations Head: Normal to inspection Ears: Hearing grossly normal bilaterally, external ears normal and TM's normal bilaterally Nose: Normal external nose present, Normal nares present and No nasal discharge present Face and sinus: Normal facial exam and Yes sinuses nontender Mouth: Normal oral and palatal mucosa present and moist mucous membranes Throat: Yes tonsils normal, Yes uvula midline. Posterior oropharynx erythema, no exudates Eyes: Appearance normal, both eyes and all related structures Neck: Normal visual inspection, full ROM Respiratory: Clear to auscultation bilaterally. Normal respiratory effort, able to speak in complete sentences, not actively coughing, no respiratory distress, not tachypneic, no tripod positioning and no use of accessory muscles Cardiovascular: Regular rate and rhythm. Normal S1 and S2 Skin: No rashes or lesions noted Neuro: Patient oriented x3, but reports feeling foggy Extremities: Normal to inspection and Yes no clubbing, cyanosis or edema [facility] History (Updated 11/27/24 @ 07:26 by Becca Sergei, PA-C) Diastolic dysfunction (~09/12/24) Mild ascending aorta dilatation (~09/12/24) Hypokalemia Heart murmur Class 1 obesity with serious comorbidity and body mass index (BMI) of 30.0 to 30.9 in adult BPH (benign prostatic hyperplasia) Dyslipidemia B12 deficiency Essential hypertension Establishing care with new doctor, encounter for Cough Acute respiratory disease Family History Father No problems noted. Mother No problems noted. Social History Housing: House Alcohol intake: current Alcohol intake frequency: does not drink Patient Tobacco Use Status: Never used Tobacco service: No Current occupational status: employed Cognitive needs: No Hearing needs: No Vision needs: Yes (rx contacts) Review of Systems Const All systems reviewed & are unremarkable except as noted in HPI and below Physical Exam Vital Signs: Last Vital Signs Temp 98.0 F 11/27/24 07:11 Pulse 73 11/27/24 07:11 Resp 16 11/27/24 07:11 BP 120/66 11/27/24 07:11 Pulse Ox 98 11/27/24 07:11 Oxygen Delivery Method Room Air 11/27/24 07:11 BMI result Body Mass Index 31.1 Assessment & Plan Assessment & Plan (1) URI, acute: Code(s): J06.9 - Acute upper respiratory infection, unspecified Plan: Plan Influenza-Like Illness - VSS, pt well appearing and PE unremarkable - Rest and increased fluid intake advised. - Frjl-wle-zniurdo medications suggested for symptom management. - Return if fever or shortness of breath occurs. - Would like Tamiflu if flu positive. Patient was informed and verbally consented to the use of an ambient scribe for clinic note documentation during this visit Orders: Orders SARS-CoV2/FLU/RSV Today R09.89 - Other specified symptoms and signs involving the circulatory and respiratory systems Coding Level of Care Code Est Pt Level 3 (69440) Diagnoses URI, acute J06.9
[2024-11-27 07:11] VITALS: BP 120/66; PULSE 73; RESP 16; TEMP 36.7; O2SAT 98; BMI 31.1
--- OUTSIDE RECORDS SUMMARY | 2024-11-27 07:12 | XMS_ITS | Encounter Summary ---
Author Organization [facility] Address [address] [place] [address] Phone Care Team Providers Care Gyro Compass Tester Name Role Phone Perez Carrasquillo MD Primary Care Provider Damaris Moran Primary Care Provider [phone] Encounter Details Date Type Department Care Team (Late st Contact Info) Description 06/15/2020 Procedure Pass OR Admitting Dept - Virtual Department [address] [place] [address] Social History Tobacco Use Types Packs/Day Years Used Date Smoking Tobacco: Never Smokeless Tobacco: Never Alcohol Use Standard Drinks/Week Comments Never 0 (1 standard drink = 0.6 oz pur e alcohol) Sex and Gender Information Value Date Recorded Sex Assigned at Not on file Legal Sex Male 9:51 PM EDT Gender Identity Not on file Sexual Orientation Not on file documented as of this encounter Functional Status * Calculated C-SSRS Risk Score (Lifetime/Recent) Answer Date of Assessment Author No Risk Indicated 06/15/2020 10:39 AM EDT Bouchra Hernandez RN * [place] Suicide Severity Rating Scale (Screener/Recent Self-Report) Question Answer Date of Assessment Author 1. Wish to be (Past 1 Month) No 06/15/2020 10:39 AM EDT Germaine Pond RN 2. Non-Specific Active Suici chandler Thoughts (Past 1 Month) No 06/15/2020 10:39 AM EDT Caryl Pond RN 6. Suicidal Behavior (Lifetime) No 10:39 AM Bouchra Boykin, LALO documented as of this encounter Plan of Treatment Not on file documented as of this encounter Visit Diagnoses Not on filedocumented in this encounter Care Teams Gyro Compass Tester Relationship Specialty Start Date End Date Perez Carrasquillo MD [address] [facility] [address] [place] [phone] [email or web address] PCP - General Family Medicine 05/31/19 08/24/22 Damaris Moran PA [address] [place] [phone] [email or web address] PCP - General Physician Structural Manager 08/25/22 documented as of this encounter Additional Source Comments The information contained in this document represents components of the legal health record. It is not the complete legal health record.[facility]
--- OUTSIDE RECORDS SUMMARY | 2024-11-27 07:12 | XMS_ITS | Encounter Summary ---
Author Organization [facility] Address [address] [place] [address] Phone Care Team Providers Care Insurance Agents Supervisor Name Role Phone Perez Carrasquillo MD Primary Care Provider [phone] Damaris Moran Primary Care Provider [phone] Encounter Details Date Type Department Care Team (Late st Contact Info) Description 05/21/2020 Ancillary Orders [facility] Orthopedics & Sports Medicine [address] [place] [address] [phone] Vicky Melo PA-C [address] [place] [address] Orthopedics & Sports Medicine, [place], [place] [phone] [email or web address] Social History Tobacco Use Types Packs/Day Years [...] on file documented as of this encounter Plan of Treatment Not on file documented as of this encounter Visit Diagnoses Not on filedocumented in this encounter Care Teams Insurance Agents Supervisor Relationship Specialty Start Date End Date Perez Carrasquillo MD [address] [facility] [address] [place] [phone] [email or web address] PCP - General Family Medicine 05/31/19 08/24/22 Damaris Moran PA [address] [place] [address] [email or web address] PCP - General Physician Customer Security Clerk 08/25/22 documented as of this encounter Additional Source Comments The information contained in this document represents components of the legal health record. It is not the complete legal health record.[facility]
--- OUTSIDE RECORDS SUMMARY | 2024-11-27 07:12 | XMS_ITS | Encounter Summary ---
Author Organization [facility] Address [address] [place] [address] Phone Care Team Providers Care Hematologist Oncologist Name Role Phone Damaris Moran Primary Care Provider [phone] Encounter Details Date Type Department Care Team (Late st Contact Info) Description 06/20/2023 Procedure Pass OR Admitting Dept - Virtual Department [address] [place] [address] Social History Tobacco Use Types Packs/Day Years [...] on filedocumented in this encounter Care Teams Hematologist Oncologist Relationship Specialty Start Date End Date Damaris Moran PA [address] [place] [phone] [email or web address] PCP - General Physician Radio Time Buyer 08/25/22 documented as of this encounter Additional Source Comments The information contained in this document represents components of the legal health record. It is not the complete legal health record.[facility]
--- OUTSIDE RECORDS SUMMARY | 2024-11-27 07:12 | XMS_ITS | Encounter Summary ---
Author Organization [facility] Address [address] [place] [address] Phone Care Team Providers Care Manager Council Name Role Phone Perez Carrasquillo MD Primary Care Provider Damaris Moran Primary Care Provider [phone] Encounter Details Date Type Department Care Team (Late st Contact Info) Description 05/21/2020 Ancillary Orders [address] [address] Vicky Melo PA-C [address] [place] [address] Orthopedics & Sports Medicine, [place], [place] [phone] [email or web address] Right knee pain, unspecified chronicity Social History Tobacco Use Types Packs/Day Years [...] on file documented as of this encounter Results * XR KNEE 1-2 VIEWS (RIGHT) (05/27/2020 3:10 PM EST) Narrative SYSTEMGENERATED, DOCUMENTATION - 05/27/2020 3:10 PM EST This image report has been auto-finalized and has not been read by a Radiologist. Interpretation has been included in the provider encounter note for this date of service. us Vicky Melo PA-C IMG XR LOWER EXTREMITY F inal Result documented in this encounter Visit Diagnoses Diagnosis Right knee pain, unspecified chronicity Right knee pain, unspecified chronicity documented in this encounter Care Teams Manager Council Relationship Specialty Start Date End Date Perez Carrasquillo MD [address] [place] [address] [place] [phone] [email or web address] PCP - General Family Medicine 05/31/19 08/24/22 Damaris Moran PA [address] [place] [phone] [email or web address] PCP - General Physician Sas Bi Developer 08/25/22 documented as of this encounter Additional Source Comments The information contained in this document represents components of the legal health record. It is not the complete legal health record.[facility]
--- OUTSIDE RECORDS SUMMARY | 2024-11-27 07:12 | XMS_ITS | Clinical Summary ---
Author Organization [facility] Address [address] [place] [address] Care Team Providers Care Senior Managing Director Name Role Phone Perez Carrasquillo MD Primary Care Provider Allergies Active Allergy Reactions [...] 2) 10/10/2007 COVID-19 Vaccine (2023-2 5 season) 2024 Influenza (#1) 2024 DTaP/Tdap/Td (2 - Td [...] topic Zoster (Zostavax) Discontinued Insurance * Guarantor: [id number] ICE Account Type Relation to Patient Date of Phone Billing Address Worker's Comp [address] [place] [address] WORKERS COMPENSATION Care Teams Senior Managing Director Relationship Specialty Start Date End Date Perez Carrasquillo MD [address] [address] PCP - General Family Medicine 11/06/19
--- OUTSIDE RECORDS SUMMARY | 2024-11-27 07:12 | XMS_ITS | Clinical Summary ---
Author Organization [facility] Address [address] [place] [address] Phone Care Team Providers Care Brush Clearing Laborer Name Role Phone Damaris Moran Primary Care [...] coronary syndromes including unstable or severe angina, SD within 1 month, severe CHF, high grade [...] of 2) 10/10/2007 BLOOD PRESSURE 11/23/2023 05/25/2023 INFLUENZA VACCINE (#1) 2024 2, 03/05/2021 COVID-19 VACCINE (2024-2 6 season) 2024 02/04/2021, 08/03/2020, 07/13/2020 SCREENING FOR DIABETES 06/19/2026 4, 04/07/2023 Adult Td,Tdap Booster 11/05/2029 11/06/2019 , [...] this topic Medical Devices Implanted Type Area Human Resources Assistant Manager Device Identifier Shelf Expiration Date Model / Serial / Lot Cement Bone Biomet Standard R 1x40 Us - [id number] Implanted:Qty: 2 on 06/15/2020 by Haja Olmos MD at [facility] Right: Knee JAMES / [employer] 03/26/2024 [id number] / / [id number] Knee Implant 70.0mm Component Femoral Vanguard Interlok [place] Cruciate Retaining Cemented Right - [id number] Implanted:Qty: 1 on 06/15/2020 by Haja Olmos MD at [facility] Right: Knee [employer] 09/05/2029 [id number] / / [id number] Knee Tray 79mm Plate Bone Primary Vanguard [place] I Beam Revision Interlock Cemented - [id number] Implanted:Qty: 1 on 06/15/2020 by Haja Olmos MD at [facility] Right: Knee [employer] 03/09/2030 [id number] / / [id number] Button Patella 45w74mo Knee Vanguard Uhmwpe Single Peg Series A Standard - [id number] Implanted:Qty: 1 on 06/15/2020 by Haja Olmos MD at [facility] Right: Knee [employer] 09/16/2021 [id number] / / [id number] Vanguard Knee Vivacit-E Highly Crosslinked Polyethylene Tibial Bearing Lipped Cruciate Retaining (Cr) 79/83 Mm Width 12 Mm Thickness Implanted:Qty: 1 on 06/15/2020 by Haja Olmos MD at [facility] Right: Knee JAMES [employer] 04/26/2024 [id number] / / [id number] Knee Patella 38x9.5mm Persona All Polyethylene Cemented Conventional - [id number] Implanted:Qty: 1 on 06/20/2023 by Rohit Pineda MD at [facility] Left: Knee JAMES [employer]ET 03/11/2028 [id number] / / [id number] Knee Implant 10mm 8 11 Component Articular Surface Persona Polyethylene Vivacite E Cruciate Retaining Fixed Lt Gh - [id number] Implanted:Qty: 1 on 06/20/2023 by Rohit Pineda MD at [facility] Left: Knee JAMES [employer] [id number] 11/02/2026 [id number] / / [id number] Bone Cement Antibiotic Refobacin - [id number] Implanted:Qty: 1 on 06/20/2023 by Rohit Pineda MD at [facility] Left: Knee JAMES [employer] [id number] 09/23/2025 [id number] / / [id number] Bone Cement Antibiotic Refobacin - [id number] Implanted:Qty: 1 on 06/20/2023 by Rohit Pineda MD at [facility] Left: Knee JAMES [employer] [id number] 09/23/2025 [id number] / / [id number] Knee Implant 5.0deg Component Tibial Persona Titanium Stemmed Cemented Lt Size H - [id number] Implanted:Qty: 1 on 06/20/2023 by Rohit Pineda MD at [facility] Left: Knee JAMES [employer] [id number] 02/15/2033 [id number] / / [id number] Knee Implant 5.0deg Component Tibial Persona Titanium Stemmed Cemented Lt Size H - [id number] Implanted:Qty: 1 on 06/20/2023 by Rohit Pineda MD at [facility] Left: Knee JAMES BI[employer]ET [id number] 02/15/2033 [id number] / / [id number] Insurance [facility] PPO EPO MEDICARE A [facility] PPO EPO MEDICARE A [facility] PPO EPO MEDICARE A [facility] PPO EPO MEDICARE A [facility] MEDICARE A [facility] EPO MEDICARE A Patricia PATTON PADMA HERNÁNDEZShannan TREVIN [id number] [place] [address] Advance Directives For more information, please contact: [phone] (9AM - 5PM [facility], Monday-Monday) * Full Code (Latest Code Status on File) Date Activated Date Inactivated Comments 06/15/2020 10:30 AM Question Answer Comments Code Status Confirmed With: Patient Code Status Communicated To: Inpatient Attending Care Teams Brush Clearing Laborer Relationship Specialty Start Date End Date Damaris Moran PA [address] [place] [phone] [email or web address] PCP - General Physician Account Collector 08/25/22 Additional Source Comments The information contained in this document represents components of the legal health record. It is not the complete legal health record.[facility]
== END 2024-11-27 08:30 | disposition home or self-care (01) ==
PROVIDERS: PCP Physician Assistant Medical; Visit Provider Physician Assistant
DX: J06.9 Acute upper respiratory infection, unspecified (principal)

== ENCOUNTER 2024-11-27 07:09 | Outpatient (REF) | payer OTHER, SELFPAY ==
[2024-11-27 11:12] LABS: Resp Syncy Virus RNA Qual PCR NEGATIVE (Negative); SARS COV2 PCR INHOUSE NEGATIVE (Negative)
== END 2024-11-27 07:10 | disposition home or self-care (01) ==
LOC: HO.LAB 07:09
PROVIDERS: PCP Physician Assistant Medical; Visit Provider Physician Assistant
DX: J06.9 Acute upper respiratory infection, unspecified (principal); R09.89 Other specified symptoms and signs involving the circulatory and respiratory systems; J02.9 Acute pharyngitis, unspecified
CPT/HCPCS: 87637

== ENCOUNTER 2024-11-29 09:14 | Outpatient (AMB) | payer OTHER, SELFPAY ==
[2024-11-29 09:16] VITALS: BP 112/64; PULSE 96; TEMP 37; O2SAT 97; BMI 31.1
--- NOTE | 2024-11-29 09:16 | AM.OFFWIN_ITS ---
Intake Vital Signs 11/29/24 09:16 Height 6 ft 1 in Weight 236 lb BMI 31.1 BP 112/64 Blood Pressure Location Lt brachial Position Sitting Pulse 96 Pulse Source Pulse Oximeter Temp 98.6 F Temp Source Oral Pulse Oximetry (%) 97 Oxygen Delivery Method Room Air Intake Visit Reasons: EP-cough, fatigue, body ache Intake Note: pt presents with unresolved coughing, headache, fatigue, body aches Patient Tobacco Use Status: Never used Tobacco Allergies lisinopril (LISINOPRIL) Adverse Reaction (Mild, Verified 11/29/24 09:20) DRY COUGH atorvastatin (From LIPITOR) Adverse Reaction (Unknown, Verified 11/29/24 09:20) MUSCLE WEAKNESS Do you need a note to return to daycare/school/sports/work: No HPI HPI Comments History of Present Illness Details History - The patient is a 69-year-old male pres enting with a persistent cough and new wheezing - The cough has been persistent and wors ening, with associated wheezing noted by the patient as a sound similar to a radio playing. - The patient reports no fever, no sinus pain, no ear pain but experiences fatigue and ear congestion due to wax. - The patient attempted yard work but wa s limited by the severity of the cough. - Previous tests 2 days ago for influenz a, COVID-19, and RSV were negative. - No hx COPD or asthma - Does not want Tesselon pearles as they make him itchy, wants a cough syrup for sleep Physical ExamGeneral: Cooperative, healthy appearing, comfortable and no acute distress Orientation/consciousness: Patient oriented x3 Limitations: No limitations Head: Normal to inspection Ears: Hearing grossly normal bilaterally, external ears, TMs with cerumen Nose: Normal external nose present, Normal nares present and No nasal discharge present Face and sinus: Normal facial exam and Yes sinuses nontender Mouth: Normal oral and palatal mucosa present and moist mucous membranes Throat: Yes tonsils normal, Yes uvula midline. Posterior oropharynx erythema, no exudates Eyes: Appearance normal, both eyes and all related structures Neck: Normal visual inspection, full ROM Respiratory: exp wheezes, slight rhonchi throughout. Normal respiratory effort, able to speak in complete sentences, Actively coughing, wheezing present, no respiratory distress, not tachypneic, no tripod positioning and no use of ac cessory muscles Cardiovascular: Regular rate and rhythm. Normal S1 and S2 Skin: No rashes or lesions noted Neuro: Patient oriented x3 Extremities: Normal to inspection and Yes no clubbing, cyanosis or edema [facility] Medical History (Updated 11/29/24 @ 09:59 by Becca Mai PA-C) Diastolic dysfunction (~09/12/24) Mild ascending aorta dilatation (~09/12/24) Hypokalemia Heart murmur Class 1 obesity with serious comorbidity and body mass index (BMI) of 30.0 to 30.9 in adult BPH (benign prostatic hyperplasia) Dyslipidemia B12 deficiency Essential hypertension Establishing care with new doctor, encounter for Cough Acute respiratory disease Family History Father No problems noted. Mother No problems noted. Social History Housing: House Alcohol intake: current Alcohol intake frequency: does not drink Patient Tobacco Use Status: Never used Tobacco service: No Current occupational status: employed Cognitive needs: No Hearing needs: No Vision needs: Yes (rx contacts) Review of Systems Const All systems reviewed & are unremarkable except as noted in HPI and below Physical Exam Vital Signs: Last Vital Signs Temp 98.6 F 11/29/24 09:16 Pulse 96 11/29/24 09:16 BP 112/64 11/29/24 09:16 Pulse Ox 97 11/29/24 09:16 Oxygen Delivery Method Room Air 11/29/24 09:16 BMI result Body Mass Index 31.1 Assessment & Plan Assessment & Plan (1) Lower respiratory infection (e.g., bronchitis, pneumonia, pneumonitis, pulmonitis): Code(s): J22 - Unspecified acute lower respiratory infection Plan: Plan - VSS, pt well appearing and PE remarkable for adventitious lung sounds with wheezing. - A chest x-ray was ordered to rule out pneumonia. - Prescribed a course of oral steroids (40 mg daily for five days) to reduce wheezing. - Advised to take the steroid in the morning to avoid sleep disturbances. - Codeine guaifenesin prescribed for nighttime use to manage cough. Patient was informed and verbally consented to the use of an ambient scribe for clinic note documentation during this visit Orders: Orders XR chest 2V Today R05.9 - Cough, unspecified Medications: New codeine-guaifenesin 10-100 mg/5 mL 10 mL PO Q4-6H PRN 120 mL 0RF cold symptoms prednisone 40 mg (2 x 20 mg) PO QAM 10 tabs 0RF Coding Level of Care Code Est Pt Level 4 (49319) Diagnoses Lower respiratory infection (e.g., bronchitis, pneumonia, pneumonitis, pulmonitis) J22
--- OUTSIDE RECORDS SUMMARY | 2024-11-29 09:58 | XMS_ITS | Encounter Summary ---
Author Organization [facility] Address [address] [place] [address] Phone Care Team Providers Care Physician General Internal Medicine Name Role Phone Perez Carrasquillo MD Primary Care Provider [phone] Damaris Moran Primary Care Provider [phone] Encounter Details Date Type Department Care Team (Late st Contact Info) Description 05/21/2020 Ancillary Orders [facility] Orthopedics & Sports Medicine [address] [place] [address] [phone] Vicky Melo PA-C [address] [place] [address] Orthopedics & Sports Medicine, [facility] [place], [place] [phone] [email or web address] Social History Tobacco Use Types Packs/Day Years [...] on filedocumented in this encounter Care Teams Physician General Internal Medicine Relationship Specialty Start Date End Date Perez Carrasquillo MD [address] [facility] [place] [phone] [email or web address] PCP - General Family Medicine 05/31/19 08/24/22 Damaris Moran PA [address] [place] [phone] [email or web address] PCP - General Physician Research Support Specialist 08/25/22 documented as of this encounter Additional Source Comments The information contained in this document represents components of the legal health record. It is not the complete legal health record.[facility]
--- OUTSIDE RECORDS SUMMARY | 2024-11-29 09:58 | XMS_ITS | Clinical Summary ---
Author Organization [facility] Address [address] [place] [address] Care Team Providers Care Equipment Operator/Laborer Name Role Phone Perez Carrasquillo MD Primary Care Provider [phone] Allergies Active Allergy Reactions Criticality Noted Date [...] topic Zoster (Zostavax) Discontinued Insurance * Guarantor: [id number] ICE Account Type Relation to Patient Date of Phone Billing Address Worker's Comp [address] [place] [phone] WORKERS COMPENSATION Care Teams Equipment Operator/Laborer Relationship Specialty Start Date End Date Perez Carrasquillo MD [address] [address] PCP - General Family Medicine 11/06/19
--- OUTSIDE RECORDS SUMMARY | 2024-11-29 09:58 | XMS_ITS | Encounter Summary ---
Author Organization [facility] Address [address] [place] [address] Phone Care Team Providers Care Load Builder Name Role Phone Perez Carrasquillo MD Primary Care Provider [phone] Damaris Moran Primary Care Provider [phone] Encounter Details Date Type Department Care Team (Late st Contact Info) Description 05/21/2020 Ancillary Orders [address] [address] Vicky Melo PA-C [address] [place] [address] Orthopedics & Sports Medicine, [place], [place] [phone] [email or web address] Right knee pain, unspecified chronicity Social History [...] chronicity documented in this encounter Care Teams Load Builder Relationship Specialty Start Date End Date Perez Carrasquillo MD [address] [place] [address] [place] [phone] [email or web address] PCP - General Family Medicine 05/31/19 08/24/22 Damaris Moran PA [address] [place] [phone] [email or web address] PCP - General Physician Animal Pathology Teacher 08/25/22 documented as of this encounter Additional Source Comments The information contained in this document represents components of the legal health record. It is not the complete legal health record.[facility]
--- OUTSIDE RECORDS SUMMARY | 2024-11-29 09:58 | XMS_ITS | Clinical Summary ---
Author Organization [facility] Address [address] [place] [address] Phone Care Team Providers Care Diesel Dinkey Engineer Name Role Phone Damaris Moran Primary Care [...] coronary syndromes including unstable or severe angina, [place] within 1 month, severe CHF, high grade [...] this topic Medical Devices Implanted Type Area Licensed Mortgage Loan Officer Device Identifier Shelf Expiration Date Model / Serial / Lot Cement Bone Biomet Standard R 1x40 Us - [id number] Implanted:Qty: 2 on 06/15/2020 by Haja Olmos MD at [facility] Right: Knee JAMES / DIV OF BRISTOL SQUIBB 03/26/2024 [id number] / / [id number] Knee Implant 70.0mm Component Femoral Vanguard Interlok [place] Cruciate Retaining Cemented Right - [id number] Implanted:Qty: 1 on 06/15/2020 by Haja Olmos MD at [facility] Right: Knee [employer] 09/05/2029 [id number] / / [id number] Knee Tray 79mm Plate Bone Primary Vanguard [place] I Beam Revision Interlock Cemented - [id number] Implanted:Qty: 1 on 06/15/2020 by Haja Olmos MD at [facility] Right: Knee [employer] 03/09/2030 [id number] / / [id number] Button Patella [id number] Knee Vanguard Uhmwpe Single Peg Series A Standard - [id number] Implanted:Qty: 1 on 06/15/2020 by Haja Olmos MD at [facility] Right: Knee [employer] 09/16/2021 [id number] / / [id number] Vanguard Knee Vivacit-E Highly Crosslinked Polyethylene Tibial Bearing Lipped Cruciate Retaining (Cr) 79/83 Mm Width 12 Mm Thickness Implanted:Qty: 1 on 06/15/2020 by Haja Olmos MD at [facility] Right: Knee JAMES BIOMET 04/26/2024 [id number] / / [id number] Knee Patella 38x9.5mm Persona All Polyethylene Cemented Conventional - [id number] Implanted:Qty: 1 on 06/20/2023 by Rohit Pineda MD at [facility] Left: Knee JAMES BIOMET 03/11/2028 [id number] / / [id number] Knee Implant 10mm 8 11 Component Articular Surface Persona Polyethylene Vivacite E Cruciate Retaining Fixed Lt Gh - [id number] Implanted:Qty: 1 on 06/20/2023 by Rohit Pineda MD at [facility] Left: Knee JAMES BIOMET [id number] 11/02/2026 [id number] / / [id number] Bone Cement Antibiotic Refobacin - [id number] Implanted:Qty: 1 on 06/20/2023 by Rohit Pineda MD at [facility] Left: Knee JAMES BIOMET [id number] 09/23/2025 [id number] / / [id number] Bone Cement Antibiotic Refobacin - [id number] Implanted:Qty: 1 on 06/20/2023 by Rohit Pineda MD at [facility] Left: Knee JAMES BIOMET [id number] 09/23/2025 [id number] / / [id number] Knee Implant 5.0deg Component Tibial Persona Titanium Stemmed Cemented Lt Size H - [id number] Implanted:Qty: 1 on 06/20/2023 by Rohit Pineda MD at [facility] Left: Knee JAMES BIOMET [id number] 02/15/2033 [id number] / / [id number] Knee Implant 5.0deg Component Tibial Persona Titanium Stemmed Cemented Lt Size H - [id number] Implanted:Qty: 1 on 06/20/2023 by Rohit Pineda MD at [facility] Left: Knee JAMES BIOMET [id number] 02/15/2033 [id number] / / [id number] Insurance [facility] PPO EPO MEDICARE A [facility] PPO EPO MEDICARE A [facility] PPO EPO MEDICARE A [facility] PPO EPO MEDICARE A [facility] MEDICARE A [facility] EPO MEDICARE A Patricia PATTON PADMA HERNÁNDEZShannan TREVIN [id number] [place] [address] Advance Directives For more information, please contact: [phone] (9AM - 5PM Amalia/[facility], Monday-Monday) * Full Code (Latest Code Status on File) Date Activated Date Inactivated Comments 06/15/2020 10:30 AM Question Answer Comments Code Status Confirmed With: Patient Code Status Communicated To: Inpatient Attending Care Teams Diesel Dinkey Engineer Relationship Specialty Start Date End Date Damaris Moran PA [address] [place] [address] [email or web address] PCP - General Physician Gravure Printing Machinist 08/25/22 Additional Source Comments The information contained in this document represents components of the legal health record. It is not the complete legal health record.[facility]
--- OUTSIDE RECORDS SUMMARY | 2024-11-29 09:58 | XMS_ITS | Encounter Summary ---
Author Organization [facility] Address [address] [place] [address] Phone Care Team Providers Care Contracts Representative Name Role Phone Damaris Moran Primary Care Provider [phone] Encounter Details Date Type Department Care Team (Late st Contact Info) Description 06/20/2023 Procedure Pass OR Admitting Dept - Virtual Department [address] [place] [address] Social History Tobacco Use Types Packs/Day Years [...] on filedocumented in this encounter Care Teams Contracts Representative Relationship Specialty Start Date End Date Damaris Moran PA [address] [place] [address] [email or web address] PCP - General Physician Jigger Artisan 08/25/22 documented as of this encounter Additional Source Comments The information contained in this document represents components of the legal health record. It is not the complete legal health record.[facility]
--- OUTSIDE RECORDS SUMMARY | 2024-11-29 09:58 | XMS_ITS | Encounter Summary ---
Author Organization [facility] Address [address] [place] [address] Phone Care Team Providers Care Research Specialist Name Role Phone Perez Carrasquillo MD Primary Care Provider [phone] Damaris Moran Primary Care Provider [phone] Encounter Details Date Type Department Care Team (Late st Contact Info) Description 06/15/2020 Procedure Pass OR Admitting Dept - Virtual Department [address] [place] [address] Social History Tobacco Use Types Packs/Day Years [...] 10:39 AM EDT Bouchra Hernandez RN * Nicholas Suicide Severity Rating Scale (Screener/Recent Self-Report) Question [...] on filedocumented in this encounter Care Teams Research Specialist Relationship Specialty Start Date End Date Perez Carrasquillo MD [address] [facility] [address] [place] [phone] [email or web address] PCP - General Family Medicine 05/31/19 08/24/22 Damaris Moran PA [address] [place] [address] [email or web address] PCP - General Physician Convention Worker 08/25/22 documented as of this encounter Additional Source Comments The information contained in this document represents components of the legal health record. It is not the complete legal health record.[facility]
== END 2024-11-29 12:11 | disposition home or self-care (01) ==
PROVIDERS: PCP Physician Assistant Medical; Visit Provider Physician Assistant
DX: J22 Unspecified acute lower respiratory infection (principal)

== ENCOUNTER 2024-11-29 09:14 | Outpatient (REF) | payer OTHER, SELFPAY ==
--- NOTE | ~2024-11-29 | XR_ITS ---
EXAMINATION: XR CHEST 2 VIEWS HISTORY: R05.9 - Cough, unspecified COMPARISON: Comparison is made with the prior examination dated 05/15/2024. FINDINGS: PA and lateral views of the chest are submitted. The lungs are expanded and clear. There is no pleural effusion, pneumothorax, or pulmonary vascular congestion. The heart is normal in size. The bones are intact. XR/XR chest 2V IMPRESSION: No acute cardiopulmonary abnormality. Electronically signed by: Oscar Freeman MD 11/29/2024 10:09 AM EDT
== END 2024-11-29 09:15 | disposition home or self-care (01) ==
LOC: HO.HMGCX 09:14
PROVIDERS: PCP Physician Assistant Medical; Visit Provider Physician Assistant
DX: J22 Unspecified acute lower respiratory infection (principal); R06.2 Wheezing; R05.9 Cough, unspecified
CPT/HCPCS: 71046

== ENCOUNTER → 2024-11-29 09:57 | Outpatient (BNV) | payer OTHER, SELFPAY | PROVIDERS: PCP Physician Assistant Medical; Visit Provider Radiology Diagnostic Radiology | DX: R05.9 Cough, unspecified (principal) | CPT/HCPCS: 71046 ==

== ENCOUNTER 2024-12-19 11:14 | Outpatient (REF) | payer OTHER, SELFPAY ==
--- NOTE | ~2024-12-19 | XR_ITS ---
CLINICAL HISTORY: M25.519 - Pain in unspecified shoulder Three views of the left and right shoulder. COMPARISON: None provided. FINDINGS: Right shoulder: Proximal right humerus, scapula, and clavicle appear intact. Humeral head is appropriately seated within the glenoid Osteophytes present along the tuberosities and inferior margin of the humeral head. Mild hypertrophy of the right acromioclavicular joint. Visualized portions of the right lung are clear. Left shoulder: Proximal left humerus, scapula, and clavicle appear intact. Left humeral head is appropriately seated in the glenoid. Osteophytes present along the inferior margin of the humeral head and tuberosities. Mild hypertrophy of the left acromioclavicular joint. Visualized portions of the left lung are clear. IMPRESSION: 1. No radiographic evidence of acute injury to the right or left shoulder. 2. Qpsn-pi-alhbpeil degenerative changes of the bilateral shoulders. This document has been electronically signed by: Harpreet Parrish MD on 12/20/2024 13:28:08
--- OUTSIDE RECORDS SUMMARY | 2024-12-20 13:03 | XMS_ITS | Clinical Summary ---
Author Organization [facility] Address [address] [place] [address] Care Team Providers Care Field Contact Person Name Role Phone Perez Carrasquillo MD Primary Care Provider [phone] Allergies Active Allergy Reactions Criticality Noted Date [...] topic Zoster (Zostavax) Discontinued Insurance * Guarantor: [id number] ICE Account Type Relation to Patient Date of Phone Billing Address Worker's Comp [address] [place] [address] WORKERS COMPENSATION Care Teams Field Contact Person Relationship Specialty Start Date End Date Perez Carrasquillo MD [address] [address] PCP - General Family Medicine 11/06/19
--- OUTSIDE RECORDS SUMMARY | 2024-12-20 13:03 | XMS_ITS | Encounter Summary ---
Author Organization [facility] Address [address] [place] [address] Phone Care Team Providers Care Vice President Pharmacy Name Role Phone Perez Carrasquillo MD Primary Care Provider [phone] Damaris Moran Primary Care Provider [phone] Encounter Details Date Type Department Care Team (Late st Contact Info) Description 05/21/2020 Ancillary Orders [facility] Orthopedics & Sports Medicine [address] [place] [address] [phone] Vicky Melo PA-C [address] [place] [address] Orthopedics & Sports Medicine, [facility] [place], [place] [phone] [email or web address] Social History Tobacco Use Types Packs/Day Years [...] on filedocumented in this encounter Care Teams Vice President Pharmacy Relationship Specialty Start Date End Date Perez Carrasquillo MD [address] [facility] [address] [place] [phone] [email or web address] PCP - General Family Medicine 05/31/19 08/24/22 Damaris Moran PA [address] [place] [address] [email or web address] PCP - General Physician Quality Control Projectionist 08/25/22 documented as of this encounter Additional Source Comments The information contained in this document represents components of the legal health record. It is not the complete legal health record.[facility]
--- OUTSIDE RECORDS SUMMARY | 2024-12-20 13:03 | XMS_ITS | Clinical Summary ---
Author Organization [facility] Address [address] [place] [address] Phone Care Team Providers Care Hair Sample Matcher Name Role Phone Damaris Moran Primary Care [...] coronary syndromes including unstable or severe angina, [place] within 1 month, severe CHF, high grade [...] this topic Medical Devices Implanted Type Area Body And Fender Worker Device Identifier Shelf Expiration Date Model / Serial / Lot Cement Bone Biomet Standard R 1x40 Us - [id number] Implanted:Qty: 2 on 06/15/2020 by Haja Olmos MD at [facility] Right: Knee JAMES / DIV OF BRISTOL SQUIBB 03/26/2024 [id number] / / [id number] Knee Implant 70.0mm Component Femoral Vanguard Interlok [place] Cruciate Retaining Cemented Right - [id number] Implanted:Qty: 1 on 06/15/2020 by Haja Olmos MD at [facility] Right: Knee [employer] 09/05/2029 [id number] / / [id number] Knee Tray 79mm Plate Bone Primary Vanguard [place] I Beam Revision Interlock Cemented - [id number] Implanted:Qty: 1 on 06/15/2020 by Haja Olmos MD at [facility] Right: Knee [employer] 03/09/2030 [id number] / / [id number] Button Patella [id number] Knee Vanguard Uhmwpe Single Peg Series A Standard - [id number] Implanted:Qty: 1 on 06/15/2020 by Haja Olmos MD at [facility] Right: Knee [employer] 09/16/2021 [id number] / / [id number] Vanguard Knee Vivacit-E Highly Crosslinked Polyethylene Tibial Bearing Lipped Cruciate Retaining (Cr) 79/83 Mm Width 12 Mm Thickness Implanted:Qty: 1 on 06/15/2020 by Haja Olmos MD at [facility] Right: Knee JAMES BIOMET 04/26/2024 [id number] / / [id number] Knee Patella 38x9.5mm Persona All Polyethylene Cemented Conventional - [id number] Implanted:Qty: 1 on 06/20/2023 by Rohit Pineda MD at [facility] Left: Knee JAMES BIOMET 03/11/2028 [id number] / / [id number] Knee Implant 10mm 8 11 Component Articular Surface Persona Polyethylene Vivacite E Cruciate Retaining Fixed Lt Gh - [id number] Implanted:Qty: 1 on 06/20/2023 by Rohit Pineda MD at [facility] Left: Knee JAMES BIOMET [id number] 11/02/2026 [id number] / / [id number] Bone Cement Antibiotic Refobacin - [id number] Implanted:Qty: 1 on 06/20/2023 by Rohit Pineda MD at [facility] Left: Knee JAMES BIOMET [id number] 09/23/2025 [id number] / / [id number] Bone Cement Antibiotic Refobacin - [id number] Implanted:Qty: 1 on 06/20/2023 by Rohit Pineda MD at [facility] Left: Knee JAMES BIOMET [id number] 09/23/2025 [id number] / / [id number] Knee Implant 5.0deg Component Tibial Persona Titanium Stemmed Cemented Lt Size H - [id number] Implanted:Qty: 1 on 06/20/2023 by Rohit Pineda MD at [facility] Left: Knee JAMES BIOMET [id number] 02/15/2033 [id number] / / [id number] Knee Implant 5.0deg Component Tibial Persona Titanium Stemmed Cemented Lt Size H - [id number] Implanted:Qty: 1 on 06/20/2023 by Rohit Pineda MD at [facility] Left: Knee JAMES BIOMET [id number] 02/15/2033 [id number] / / [id number] Insurance [facility] PPO EPO MEDICARE A [facility] PPO EPO MEDICARE A [facility] PPO [facility]PO MEDICARE A [facility] PPO EPO MEDICARE A [facility] MEDICARE A [facility] EPO MEDICARE A Patricia PATTON PADMA HERNÁNDEZShannan TREVIN [id number] [place] [address] Advance Directives For more information, please contact: [phone] (9AM - 5PM Amalia/[facility], Monday-Monday) * Full Code (Latest Code Status on File) Date Activated Date Inactivated Comments 06/15/2020 10:30 AM Question Answer Comments Code Status Confirmed With: Patient Code Status Communicated To: Inpatient Attending Care Teams Hair Sample Matcher Relationship Specialty Start Date End Date Damaris Moran PA [address] [place] [address] [email or web address] PCP - General Physician Long Term Care Phlebotomist 08/25/22 Additional Source Comments The information contained in this document represents components of the legal health record. It is not the complete legal health record.[facility]
--- OUTSIDE RECORDS SUMMARY | 2024-12-20 13:03 | XMS_ITS | Encounter Summary ---
Author Organization [facility] Address [address] [place] [address] Phone Care Team Providers Care Secretary Book Keeper Name Role Phone Perez Carrasquillo MD Primary Care Provider Damaris Moran Primary Care Provider [phone] Encounter Details Date Type Department Care Team (Late st Contact Info) Description 05/21/2020 Ancillary Orders [address] [address] Vicky Melo PA-C [address] [place] [address] Orthopedics & Sports Medicine, [place], [place] [phone] [email or web address] Right knee pain, unspecified chronicity Social History [...] chronicity documented in this encounter Care Teams Secretary Book Keeper Relationship Specialty Start Date End Date Perez Carrasquillo MD [address] [place] [address] [place] [phone] [email or web address] PCP - General Family Medicine 05/31/19 08/24/22 Damaris Moran PA [address] [place] [phone] [email or web address] PCP - General Physician Pin Ticket Machine Operator 08/25/22 documented as of this encounter Additional Source Comments The information contained in this document represents components of the legal health record. It is not the complete legal health record.[facility]
--- OUTSIDE RECORDS SUMMARY | 2024-12-20 13:03 | XMS_ITS | Encounter Summary ---
Author Organization [facility] Address [address] [place] [address] Phone Care Team Providers Care Rental Clerk Name Role Phone Damaris Moran Primary Care Provider [phone] Encounter Details Date Type Department Care Team (Late st Contact Info) Description 06/20/2023 Procedure Pass [place] Admitting Dept - Virtual Department [address] [place] [address] Social History Tobacco Use Types Packs/Day Years [...] on filedocumented in this encounter Care Teams Rental Clerk Relationship Specialty Start Date End Date Damaris Moran PA [address] [place] [phone] [email or web address] PCP - General Physician Hospital Food Service Worker 08/25/22 documented as of this encounter Additional Source Comments The information contained in this document represents components of the legal health record. It is not the complete legal health record.[facility]
--- OUTSIDE RECORDS SUMMARY | 2024-12-20 13:03 | XMS_ITS | Encounter Summary ---
Author Organization [facility] Address [address] [place] [address] Phone Care Team Providers Care Financial Counselor Name Role Phone Perez Carrasquillo MD Primary Care Provider [phone] Damaris Moran Primary Care Provider [phone] Encounter Details Date Type Department Care Team (Late st Contact Info) Description 06/15/2020 Procedure Pass OR Admitting Dept - Virtual Department [address] [place] [address] Social History Tobacco Use Types Packs/Day Years [...] 10:39 AM EDT Bouchra Hernandez RN * [place] Suicide Severity Rating Scale (Screener/Recent Self-Report) Question [...] on filedocumented in this encounter Care Teams Financial Counselor Relationship Specialty Start Date End Date Perez Carrasquillo MD [address] [facility] [address] [place] [phone] [email or web address] PCP - General Family Medicine 05/31/19 08/24/22 Damaris Moran PA [address] [place] [phone] [email or web address] PCP - General Physician Project Specialist 08/25/22 documented as of this encounter Additional Source Comments The information contained in this document represents components of the legal health record. It is not the complete legal health record.[facility]
== END 2024-12-19 11:15 | disposition home or self-care (01) ==
LOC: HO.HOSX 11:14
PROVIDERS: Visit Provider Physician Assistant
DX: M19.011 Primary osteoarthritis, right shoulder (principal); M19.012 Primary osteoarthritis, left shoulder; M77.8 Other enthesopathies, not elsewhere classified
CPT/HCPCS: 20610; 73030; J0665; J1100; J2003

== ENCOUNTER 2024-12-19 11:26 | Outpatient (AMB) | payer OTHER, SELFPAY ==
[2024-12-19 11:51] VITALS: BMI 31.1
--- NOTE | 2024-12-19 11:51 | A.OFFVIS_ITS ---
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 Patient reports has been for a while and has had treatment at [facility]. He received injection about 5 months ago, states injections provide some relief and is requesting injections. He is unsure if last injection was to both of his shoulder or just one. States his most discomfort comes with sleeping. Allergies lisinopril (LISINOPRIL) Adverse Reaction (Mild, Verified 12/19/24 11:57) DRY COUGH atorvastatin (From LIPITOR) Adverse Reaction (Unknown, Verified 12/19/24 11:57) MUSCLE WEAKNESS benzonatate Adverse Reaction (Verified 12/19/24 11:57) itchy codeine Adverse Reaction (Verified 12/19/24 11:57) jittery, sensitivity Medication List - Last Reconciled 12/19/24 by Eva Miller PA-C amlodipine 5 mg PO DAILY aspirin 81 mg PO DAILY cyanocobalamin (vitamin B-12) 1,000 mcg PO DAILY ergocalciferol (vitamin D2) (Vitamin D2) 1,250 mcg PO QWEEK ezetimibe 10 mg PO QAM gabapentin 1,200 mg (4 x 300 mg) PO BEDTIME 90 days hydralazine 10 mg PO BID hydrochlorothiazide 25 mg PO DAILY tamsulosin 0.4 mg PO DAILY HPI 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 He states he was seen by [facility] and most recently 5months ago bilat shoulder injected with good relief. He states his primary discomfort is when he is sleeping at night. He finds it hard to find a comfortable position. He does feel work as a job and is constantly performing overhead activities which causes pain in the shoulders. [facility], [facility] Medical History (Updated 12/19/24 @ 12:06 by Eva Miller PA-C) Diastolic dysfunction (~09/12/24) Mild ascending aorta dilatation (~09/12/24) Hypokalemia Heart murmur Class 1 obesity with serious comorbidity and body mass index (BMI) of 30.0 to 30.9 in adult BPH (benign prostatic hyperplasia) Dyslipidemia B12 deficiency Essential hypertension Establishing care with new doctor, encounter for Cough Acute respiratory disease Surgical History (Updated 12/19/24 @ 11:58 by AUDREY Salinas) History of bilateral knee replacement Family History Father No problems noted. Mother No problems noted. 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 Cognitive needs: No Hearing needs: No Vision needs: Yes (rx contacts) Review of Systems Const All systems reviewed & are unremarkable except as noted in HPI and below Physical Exam Vital Signs: BMI result Body Mass Index 31.1 Const General: cooperative and no acute distress Orientation/consciousness: patient oriented x3 Resp Effort & Inspection: normal respiratory effort and able to speak in complete sentences Cardio Peripheral pulses: Peripheral pulses 2+ throughout Neuro General: patient oriented x3 Extrem Other: Bilateral shoulders are normal to inspection with full range of motion in all planes. He has a positive [place]'s on the right. 5/5 rotator cuff strength. Neurovascularly intact. Office Procedures AMB Joint Injection/Aspiration Joint Injection/Aspiration Primary Site: right shoulder Secondary Site: left shoulder Prep: site was prepped using aseptic technique, ethochloride spray was applied and injection warnings given Injected: 40 mg of (Decadron), with 3 mL of, 1% plain lidocaine, 0.25% bupivacaine and in the subcromial space Approach Used: posterolateral Procedure: The patient tolerated the procedure well and there was some relief with the local anesthesia Coding 44955 - Glenohumeral/Tronchanteric Bursa/Intraarticular Procedure code (CPT) selection complete Results Reviewed Results Reviewed: X-rays of both shoulders obtained in the office today and reviewed by me show bilateral glenohumeral joint arthritis. Assessment & Plan Assessment & Plan (1) Tendonitis of both shoulders: Code(s): M77.8 - Other enthesopathies, not elsewhere classified Category: Medical (2) Osteoarthritis of shoulders, bilateral: Code(s): M19.011 - Primary osteoarthritis, right shoulder; M19.012 - Primary osteoarthritis, left shoulder Category: Medical Plan We discussed options which include repeat injections today. Both shoulders were injected today with steroid which the patient tolerated well. I also placed an order for physical therapy which she will contact the office to make an appointment. If symptoms persist or worsen over the next 6-8 weeks the patient can contact our office otherwise follow up as needed. Orders: Orders XR Shoulder Bijan min 2V Today M25.519 - Pain in unspecified shoulder PT Evaluation and Treatment Today M19.011 - Primary osteoarthritis, right shoulder, M19.012 - Primary osteoarthritis, left shoulder, M77.8 - Other enthesopathies, not elsewhere classified Coding Level of Care Code New Pt Level 3 (84927) Complex EM visit Add On G2211 Diagnoses Tendonitis of both shoulders M77.8 Osteoarthritis of shoulders, bilateral M19.011; M19.012 CPT Codes Coding - Joint 7: 99033 - Glenohumeral/Tronchanteric Bursa/Intraarticular ([id number])
== END 2024-12-19 13:05 | disposition home or self-care (01) ==
LOC: HO.HOS 11:27
PROVIDERS: PCP Physician Assistant Medical; Visit Provider Physician Assistant
DX: M77.8 Other enthesopathies, not elsewhere classified (principal); M19.011 Primary osteoarthritis, right shoulder; M19.012 Primary osteoarthritis, left shoulder
CPT/HCPCS: 20610; 99203

== ENCOUNTER → 2024-12-19 11:32 | Outpatient (BNV) | payer OTHER, SELFPAY | PROVIDERS: Visit Provider Radiology Diagnostic Radiology | DX: M19.012 Primary osteoarthritis, left shoulder (principal); M19.011 Primary osteoarthritis, right shoulder | CPT/HCPCS: 73030 ==